=== PATIENT | female | born 1950 | race Caucasian/White ===

== ENCOUNTER → 2017-01-10 | Outpatient (CLI) | payer BC ==
[~2017-01-10] MED LIST: CHLO1TAB38 PO; LEVO100T PO; LUTE15CA PO; METO50TA7 PO; TAMO20TA47 PO
== END | disposition home or self-care (01) ==
LOC: C.MAMM 12:38
PROVIDERS: ATTEND Family Medicine
DX: Z78.0 Asymptomatic menopausal state (principal); M85.851 Other specified disorders of bone density and structure, right thigh; M85.852 Other specified disorders of bone density and structure, left thigh

== ENCOUNTER → 2017-02-08 | Outpatient (CLI) | payer BC ==
[~2017-02-08] MED LIST changes: +DOXY100C76 PO; -TAMO20TA47 PO; +TAMO20TA9 PO; +pota
[2017-02-08 13:45] VITALS: BP 142/87; PULSE 78; TEMP 36.9; O2SAT 96
--- NOTE | 2017-02-08 16:21 | Radiation Oncology Follow-Up ---
Radiation Oncology Follow-Up Date of Visit Feb 08, 2017. Reason For Visit Annual follow-up Radiation Completion Date 06/11/13 Diagnosis (1) Intraductal carcinoma of left breast Status: Resolved Onset Date: 04/17/2013 Stage: 0 Permanent Comment: Abnormal left breast mammogram January 2013 Status post biopsy revealing high-grade DCIS Estrogen receptor positive and progesterone receptor positive Status post partial mastectomy stage pTis Status post completion of radiation therapy utilizing accelerated partial breast treatment completed 06/11/2013 received 3850 cGy FNA right breast 05/15/2014 benign Last Edited By: Uma Tapia on Feb 11, 2015 16:03 Interim History She's been doing well over this past year. She denies any changes to her breast. She's noted no masses or tenderness and no change of the axilla. She is up-to-date on mammography. The area of firmness in the upper outer portion of the breast is unchanged. She was referred from Dr. Hutchinson to Dr. kristi Villaseñor. She continues on the tamoxifen. She denies side effects. He did discuss with her genetic testing. She has 2 cousins who have had breast cancer as well as an aunt. A cousin had a bilateral mastectomy. This relative also had genetic testing that was negative. She'll review this information with Dr. Brandon at her next visit. Allergies Coded Allergies: No Known Allergies (Unverified , 05/23/13) Home Medications Scheduled Chlorpromazine Hcl (Thorazine), 10 MG PO DAILY Doxycycline Monohydrate (Monodox), 50 MG PO DAILY Levothyroxine Sodium (Synthroid), 1 TAB PO DAILY Lutein-Zeaxanthin (Lutein), 1 CAP PO DAILY Metoprolol Succ (Toprol Xl) (Toprol-Xl), 50 MG PO DAILY Tamoxifen (Nolvadex), 20 MG PO DAILY [pota], 10 MG BID Review of Systems Gastrointestinal: Symptoms: WNL Oral: Symptoms: No Problems Respiratory: Symptoms: WNL Urinary: Symptoms: WNL Skin: Symptoms: No Problems Breast: Right Upper Arm Measurement: 37.0 Right Mid Arm Measurement: 26.0 Right Wrist Measurement: 14.5 Left Upper Arm Measurement: 36.0 Left Mid Arm Measurement: 29.0 Left Wrist Measurement: 15.0 Arm Dominence: Right Patient Cosmetic Evaluation: Good Staff Cosmetic Evalaluation: Good Physical Exam Vital Signs Date Time Temp Pulse Resp B/P (MAP) Pulse Ox O2 Delivery O2 Flow Rate FiO2 02/08/17 13:45 36.9 78 18 142/87 96 Fatigue: None General Appearance: no apparent distress Eyes: normal inspection, EOMI ENT: normal ENT inspection, hearing grossly normal Neck: no adenopathy, thyroid normal Respiratory/Chest: lungs clear, no respiratory distress, no accessory muscle use Breast: Breast examination reveals area of firmness in the upper outer portion of the left breast. She has well-healed incisions. There are no distinct masses. She has no skin retractions or nipple changes. There is no axillary adenopathy. She has telangiectasia in the area of her incision. Using the [place] score cosmesis she has a a good outcome. The right breast showed no masses or tenderness and no axillary adenopathy. Cardiovascular: regular rate, rhythm, no gallop, no murmur Extremities: no pedal edema Neurologic/Psychiatric: no motor/sensory deficits, alert, normal mood/affect Skin: warm/dry Pain Management Pain Location: None Patient Preferred Pain Scale: 0 - 10 Additional Studies She had a mammogram [facility] on 03/31/2016. This showed no evidence of breast malignancy. Routine diagnostic mammogram is recommended in 12 months. BI-RADS Category 2. Assessment & Plan Plan: Continue with annual mammography. Continue to get a follow-up with her primary care physician and Dr. Brandon. She continues on tamoxifen. We asked her to return to our office in 1 year. She may call if she has any questions or concerns in the interim. Total Time In Follow-Up I spent 20 minutes speaking to the patient and performing examination. I spent 15 minutes reviewing information and completing this note. Copy To Dez Hutchinson M.D.; Liyah Wolff M.D.; Holland Brandon MD
== END | disposition home or self-care (01) ==
LOC: C.ONC 13:12
PROVIDERS: ATTEND Physician Assistant Medical
DX: Z08 Encounter for follow-up examination after completed treatment for malignant neoplasm (principal); Z92.3 Personal history of irradiation; Z85.3 Personal history of malignant neoplasm of breast

== ENCOUNTER → 2017-02-09 | Outpatient (CLI) | payer BC ==
--- NOTE | 2017-02-09 13:48 | DIAGNOSTIC IMAGING REPORT ---
LUNG IMAGING VQ CLINICAL HISTORY: 66 years-old Female presenting with PULMONARY HYPERTENSION, APNEA, SLEEP. TECHNIQUE: Immediately following the inhalation of 32 mCi of technetium 99 M DTPA for the ventilation scan and the intravenous administration of 5.6 mCi of technetium 99 M MAA for the perfusion scan, anterior, oblique, lateral, and posterior views of the chest were obtained. Modified PIOPED II criteria were utilized for assessment. COMPARISON: Chest CT from 05/29/2013. FINDINGS: No perfusion defect. Slight heterogeneity of radiotracer distribution in the lungs, suggesting central airway deposition, which could suggest underlying chronic obstructive pulmonary disease. No ventilation defect evident. Reference: Modified PIOPED II criteria Normal: No perfusion defects. Very low likelihood ratio: Nonsegmental, perfusion defect < chest x-ray lesion, 1-3 small segmental defects, solitary triple matched defect (< or = 1 segment) in mid or upper lung, stripe sign, solitary large pleural effusion, > or = to 2 matched defects with regionally normal chest x-ray. High likelihood ratio: > or = 2 large mismatch segmental defects. Nondiagnostic: All other findings. IMPRESSION: 1. Normal. Electronically signed by: Neel Michaud M.D. 02/09/2017 1:47 PM Dictated Date/Time: 02/09/2017 1:42 PM
--- NOTE | 2017-02-09 14:40 | DIAGNOSTIC IMAGING REPORT ---
CHEST 2 VIEWS ROUTINE CLINICAL HISTORY: 66 years-old Female presenting with PULMONARY HYPERTENSION, post V/Q scan. TECHNIQUE: PA and lateral views of the chest were obtained. COMPARISON: V/Q scan performed the same day. FINDINGS: Cardiomediastinal silhouette normal. Surgical clips project over the left lung base, possibly in the left breast. Mild prominence of lung markings. Lungs and pleural spaces otherwise clear. Osseous structures normal. Cholecystectomy clips are IMPRESSION: 1. No acute cardiopulmonary disease. Electronically signed by: Neel Michaud M.D. 02/09/2017 2:38 PM Dictated Date/Time: 02/09/2017 2:37 PM
== END | disposition home or self-care (01) ==
LOC: C.NUCL 12:42
PROVIDERS: ATTEND Internal Medicine Cardiovascular Disease
DX: I10 Essential (primary) hypertension (principal); G47.30 Sleep apnea, unspecified; I27.20 Pulmonary hypertension, unspecified

== ENCOUNTER 2018-07-04 | Inpatient (IN) ==
[2018-07-04] MEDS ORDERED: SODIUM CHLORIDE 0.9% 1000ML 1,000 ML IV ONE (00:08)
[2018-07-04 00:31] LABS: Basophils # (auto) 0.03 K/uL (0-0.2); Basophils % (auto) 0.2 %; Eosinophils % (auto) 1.5 %; Hematocrit (blood only) 41.5 % (37-47); Hemoglobin 13.9 g/dL (12.0-16.0); Immature Granulocytes # (auto) 0.05 K/uL (0.00-0.02); Immature Granulocytes % (auto) 0.4 %; Lymphocytes # (auto) 2.69 K/uL (1.2-3.4); Lymphocytes % (auto) 20.1 %; Mean Corpuscular Hgb Conc 33.5 g/dL (32-36); Mean Corpuscular Volume 88.3 fL (80-100); Mean Platelet Volume 10.1 fL (7.4-10.4); Monocytes # (auto) 0.75 K/uL (0.11-0.59); Monocytes % (auto) 5.6 %; Neutrophils # (auto) 9.64 K/uL (1.4-6.5); Neutrophils % (auto) 72.2 %; Platelet Count 251 K/uL (130-400); RDW Coefficient of Variation 14.8 % (11.5-14.5); White Blood Count 13.36 K/uL (4.8-10.8)
[2018-07-04 00:46] LABS: Albumin Level 2.8 gm/dl (3.4-5.0); BUN Creatinine Ratio 18.3 (10-20); Calcium 8.4 mg/dl (8.5-10.1); Creatinine Clr Calc Pharmacy 50.6 ml/min; Est GFR (African American) 56.4; Est GFR (Non-African American) 48.7; Potassium 3.6 mmol/L (3.5-5.1)
[2018-07-04] MEDS ORDERED: POTASSIUM CHLORIDE 10 MEQ TABCR PO STA (00:49)
[2018-07-04 00:51] LABS: Albumin Globulin Ratio 0.8 (0.9-2); Bilirubin,Total 0.3 mg/dl (0.2-1); Creatine Kinase MB 3.5 ng/ml (0.5-3.6); Globulin 3.6 gm/dl (2.5-4.0); Total Protein 6.4 gm/dl (6.4-8.2); Troponin I 0.045 ng/ml (0-0.045)
--- NOTE | 2018-07-04 01:47 | Emergency Department Note ---
Entered by Carlos Loredo acting as a scribe for History of Present Illness General Chief complaint: Tachycardia Time Seen by Provider: 07/04/18 00:02 Source: patient History of Present Illness Provider complaint: Tachycardia Onset (ago): hour(s) (Just prior to arrival) Location: chest Severity: similar to prior episodes Pain Consistency: + constant Relieved By: + none Exacerbated By: + none Associated symptoms: + cough and + other (Congestion); no chest pain and no shortness of breath The patient is a 67 year old female who presents to the Emergency Room with complaints of constant tachycardia that started this evening just prior to arrival. The patient was here earlier today for the same symptoms after taking her Tadalafil. Tonight the symptoms returned shortly after taking the same medication. Today is the first day she started taking the Tadalafil and it was prescribed to her for pulmonary hypertension. The patient also has had a cough and some congestion over the past couple days. To relieve these symptoms she has been taking Tylenol. Prior to arrival she received 6mg of adenosine. Home Medications Home Medications Medication Instructions Recorded Confirmed Type bepotastine besilate [Bepreve] 1 drp OPB BID PRN 05/28/18 07/04/18 History brimonidine [Alphagan P] 1 drp OPL BID 05/28/18 07/04/18 History chlorthalidone 25 mg PO DAILY PRN 05/28/18 07/04/18 History levothyroxine 100 mcg PO DAILY 05/28/18 07/04/18 History lutein 20 mg PO DAILY 05/28/18 07/04/18 History macitentan 10 mg PO DAILY 05/28/18 07/04/18 History metoprolol succinate [Toprol XL] 50 mg PO DAILY 05/28/18 07/04/18 History potassium chloride 10 meq PO BID PRN 05/28/18 07/04/18 History spironolactone 25 mg PO DAILY 05/28/18 07/04/18 History tamoxifen 20 mg PO DAILY 05/28/18 07/04/18 History tadalafil (antihypertensive) 20 mg PO BID 07/03/18 07/04/18 History [Adcirca] Allergies Allergy/AdvReac Type Severity Reaction Status Date / Time No Known Allergies Allergy Verified 07/04/18 01:38 Past Med/Surg History Medical History Breast cancer (Acute) Hypertension (Chronic) Hypothyroidism (Chronic) Pulmonary hypertension (Chronic) Family History Other Family history non-contributory Social History Preferred Language: Telugu Feels Safe at Home: Yes Smoking Status: Never smoker Hx Alcohol Use: No Review of Systems See HPI for pertinent positives & negatives. and A total of 10 systems reviewed and were otherwise negative Physical Exam Vital Signs Vital Signs - 24 hr 07/04/18 00:00 07/04/18 00:17 07/04/18 00:29 Temperature 36.7 C Temperature Source Oral Sepsis Recent Fever Within 48 Hours No Sepsis New/Unexplained Change in Mental Status No Sepsis Action Taken by Nursing No Action Required Pulse Rate 104 H Pulse Rate [Bilateral Apical] 96 H Respiratory Rate 16 20 Respiratory Effort / Characteristics Non-Labored Respiratory Depth Normal Blood Pressure 128/72 Blood Pressure [Right Arm] 97/55 L Blood Pressure Mean 90 Blood Pressure Mean [Right Arm] 69 Pulse Oximetry 94 95 94 Oxygen Delivery Method Room Air Room Air Room Air 07/04/18 00:55 07/04/18 01:36 Temperature Temperature Source Sepsis Recent Fever Within 48 Hours Sepsis New/Unexplained Change in Mental Status Sepsis Action Taken by Nursing Pulse Rate Pulse Rate [Bilateral Apical] 96 H 96 H Respiratory Rate 20 20 Respiratory Effort / Characteristics Respiratory Depth Blood Pressure Blood Pressure [Right Arm] 95/63 L 115/66 Blood Pressure Mean Blood Pressure Mean [Right Arm] 73 82 Pulse Oximetry 93 94 Oxygen Delivery Method Room Air Room Air GENERAL: Awake, alert, well-appearing, in no distress HENT: Normocephalic, atraumatic. Oropharynx unremarkable. EYES: Normal conjunctiva. Sclera non-icteric. NECK: Supple. No nuchal rigidity. FROM. No masses. RESPIRATORY: Clear to auscultation. No wheezes. No rales. Normal respiratory effort. CARDIAC: Normal rate. Normal rhythm. No murmurs. No rubs. Extremities warm and well perfused. Pulses equal. No JVD. GI: Soft, non-distended. No tenderness to palpation. No rebound or guarding. No masses. RECTAL: Deferred. MUSCULOSKELETAL: Atraumatic. Chest examination reveals no tenderness. The back is symmetrical on inspection without obvious abnormality. There is no CVA tenderness to palpation. No joint edema. LOWER EXTREMITIES: Calves are equal size bilaterally and non-tender. No edema. No discoloration. NEURO: Normal sensorium. No sensory or motor deficits noted. Course 0004: Past medical records reviewed. The patient was evaluated in room A10, and a complete history and physical examination were performed. 0115: I spoke to Dr. Jaquez [facility] Hospitalist about the patient's case and she is going to accept her for further evaluation. 0125: I reviewed the results with the patient and discussed the treatment plan. She agreed with the plan. Consultations Consultation #1: I spoke to Dr. Leonid Monterroso [facility] Hospitalist about the patient's case and she is going to accept her for further evaluation. Time: 01:15 Administered Medications Discontinued Medications Sodium Chloride (Nss 1000ml) 1,000 mls @ 999 mls/hr IV .Q1H1M ONE Stop: 07/04/18 01:08 Last Infusion: 07/04/18 01:31 Dose: 0 mls/hr Documented by: [id number] Admin: 07/04/18 00:22 Dose: 999 mls/hr Documented by: [id number] Potassium Chloride (Klor-Con M10) 40 meq PO NOW STA Stop: 07/04/18 00:50 Last Admin: 07/04/18 00:55 Dose: 40 meq Documented by: [id number] Medical Decision Making Differential Diagnosis Differential: NSR, SVT, PACs, PVCs, Cardiac Dysrhythmia, Endocrine Dysfunction, Eletrolyte/Metabolic Abnormality, Pulmonary Embolism, Infectious, GI, Medication Reaction, amongst other pathologies entertained. Medical Records Attestation: I reviewed the patient's medical records. Home Medications Current Medication List: was personally reviewed by me Laboratory Data Attestation: I reviewed the patient's lab results. Result diagrams: 07/04/18 00:17 07/04/18 00:17 Lab Results 07/04/18 07/04/18 Range/Units 00:17 00:17 WBC 13.36 H (4.8-10.8) K/uL RBC 4.70 (4.2-5.4) M/uL Hgb 13.9 (12.0-16.0) g/dL Hct 41.5 (37-47) % MCV 88.3 (80-100) fL MCH 29.6 (25-34) pg MCHC 33.5 (32-36) g/dL RDW Std Deviation 48.0 H (36.4-46.3) fL RDW Coeff of Luiz 14.8 H (11.5-14.5) % Plt Count 251 (130-400) K/uL MPV 10.1 (7.4-10.4) fL Immature Gran % (Auto) 0.4 % Neut % (Auto) 72.2 % Lymph % (Auto) 20.1 % Daniels % (Auto) 5.6 % Eos % (Auto) 1.5 % Baso % (Auto) 0.2 % Immature Gran # (Auto) 0.05 H (0.00-0.02) K/uL Neut # (Auto) 9.64 H (1.4-6.5) K/uL Lymph # (Auto) 2.69 (1.2-3.4) K/uL Daniels # (Auto) 0.75 H (0.11-0.59) K/uL Eos # (Auto) 0.20 (0-0.5) K/uL Baso # (Auto) 0.03 (0-0.2) K/uL Sodium 141 (136-145) mmol/L Potassium 3.6 (3.5-5.1) mmol/L Chloride 109 H (98-107) mmol/L Carbon Dioxide 24 (21-32) mmol/L Anion Gap 8.0 (3-11) BUN 21 H (7-18) mg/dl Creatinine 1.16 (0.6-1.2) mg/dl Est Cr Clr Drug Dosing 50.6 ml/min Est GFR ( Amer) 56.4 Est GFR (Non-Af Amer) 48.7 BUN/Creatinine Ratio 18.3 (10-20) Glucose 155 H (70-99) mg/dl Calcium 8.4 L (8.5-10.1) mg/dl Magnesium 2.0 (1.8-2.4) mg/dl Total Bilirubin 0.3 (0.2-1) mg/dl AST 20 (15-37) U/L ALT 31 (12-78) U/L Alkaline Phosphatase 45 (45-117) U/L Total Creatine Kinase 59 (26-192) U/L CK-MB (CK-2) 3.5 (0.5-3.6) ng/ml CK/CKMB % Calc 5.9 H (0-3.0) Troponin I 0.045 (0-0.045) ng/ml Total Protein 6.4 (6.4-8.2) gm/dl Albumin 2.8 L (3.4-5.0) gm/dl Globulin 3.6 (2.5-4.0) gm/dl Albumin/Globulin Ratio 0.8 L (0.9-2) Lipase 189 (73-393) U/L ECG Data Attestation: I personally reviewed and interpreted this ECG as follows: Indication: tachycardia Rate (beats per minute): 104 Rhythm: sinus tachycardia Findings: no ST depression and no ST elevation Blood Pressure Blood Pressure Findings: Low blood pressure Blood Pressure Disposition: further management by hospitalist MDM Narrative This is a 67-year-old female who presents emergency department complaining of SVT. This is the second time the patient has been to the emergency department today with similar complaints. Her SVT was broken with 6 mg of adenosine. She was given a normal saline bolus. I did discuss the case with the hospitalist service who agreed to admit the patient. Patient was in agreement with the treatment plan. Impression & Plan SVT (supraventricular tachycardia) Discharge Plan Visit Data Chief Complaint: Tachycardia ED Provider: Jaun Simpson Discharge Problem: SVT (supraventricular tachycardia) Patient Disposition: Being Evaluated by Hospitalist Forms Stand Alone Forms: My [facility] Prescriptions Prescriptions: No Action potassium chloride 10 mEq Capsule, Extended Release 10 meq PO BID PRN (Reason: when taking chlorthalidone) RF: 0 metoprolol succinate [Toprol XL] 50 mg Tablet Extended Release 24 Hr 50 mg PO DAILY RF: 0 chlorthalidone 25 mg Tablet 25 mg PO DAILY PRN (Reason: worsening swelling, sob) RF: 0 spironolactone 25 mg Tablet 25 mg PO DAILY RF: 0 levothyroxine 100 mcg Tablet 100 mcg PO DAILY RF: 0 tamoxifen 20 mg Tablet 20 mg PO DAILY RF: 0 Alphagan P 0.1 % Drops 1 drp OPL BID RF: 0 Bepreve 1.5 % Drops 1 drp OPB BID PRN (Reason: Allergy Symptoms) RF: 0 lutein 20 mg Tablet 20 mg PO DAILY RF: 0 macitentan 10 mg Tablet 10 mg PO DAILY RF: 0 tadalafil (antihypertensive) [Adcirca] 20 mg tablet 20 mg PO BID RF: 0 Referrals Referrals: Liyah Wolff MD [Primary Care Provider] - The scribe's documentation has been prepared under my direction and personally reviewed by me in its entirety. I confirm that the note above accurately reflects all work, treatment, procedures, and medical decision making performed by me.
--- NOTE | 2018-07-04 02:57 | History & Physical Report ---
Date of Service July 04, 2018 Assessment & Plan (1) SVT (supraventricular tachycardia): 67-year-old female with a past medical history of idiopathic pulmonary hypertension, hypertension, right-sided heart failure presents with recurrent SVT. Recurrent SVT Admit to telemetry, monitor for SVT, alert physician Consulting cardiology, appreciate recommendations EKG in the morning N.p.o. Pulmonary hypertension Holding tadalafilpatient feels that there is a correlation between SVT and starting the medication today. While the medication could have theoretically caused tachycardia, considering her past history of SVT, she has to have some underlying disease likely Right heart failure In the setting of pulmonary hypertension echocardiogram on January 02, 2018 showed dilated right ventricle and hypokinetic RV wall, dilated right atrium, severe pulmonary hypertension, pressures of 102 mm per mercury. Since previous study of December 2016 the PA pressure had increased from 64mmHg to 102 mmHg. Continue chlorthalidone, spironolactone Hypertension Continue metoprolol Hypothyroidism Continue levothyroxine History of breast cancer Continue tamoxifen DVT prophylaxis Lovenox 30 mg every 24 Code -Full FEN Normal saline, 80 cc/h, stop after 1 bag (2) Pulmonary HTN: (3) HTN (hypertension): (4) History of breast cancer: (5) CHF (congestive heart failure): (6) Hypothyroidism: History of Present Illness Primary Care Provider: Liyah Wolff MD 67-year-old female with a past medical history of idiopathic pulmonary hypertension, hypertension, right-sided heart failure presents with recurrent SVT. The patient states that this morning in the shower she began to feel heart palpitations and decided to come the emergency room. She is says that she has had an episode of SVT last May and was seen by Dr. Lee. She was effectively treated with adenosine and was discharged home and again went into SVT around 330 this afternoon. During these episodes, she denied chest pain, but felt some chest tightness and shortness of breath. Patient was diagnosed with pulmonary hypertension about 1 year ago. She is being seen by a vascular specialist at [place] and is being treated with Macitentan and Tadalafil. She just started tadalafil today. Patient is concerned that medication side effect is triggering SVT. Of note, the patient has had URI symptoms for 1 week. Symptoms include runny nose, cough, sore throat. No fevers, chills, night sweats, abdominal pain, nausea/vomiting/diarrhea Allergies Allergy/AdvReac Type Severity Reaction Status Date / Time No Known Allergies Allergy Verified 07/04/18 01:38 Home Medications Home Medications Medication Instructions Recorded Confirmed Type bepotastine besilate [Bepreve] 1 drp OPB BID PRN 05/28/18 07/04/18 History brimonidine [Alphagan P] 1 drp OPL BID 05/28/18 07/04/18 History chlorthalidone 25 mg PO DAILY PRN 05/28/18 07/04/18 History levothyroxine 100 mcg PO DAILY 05/28/18 07/04/18 History lutein 20 mg PO DAILY 05/28/18 07/04/18 History macitentan 10 mg PO DAILY 05/28/18 07/04/18 History metoprolol succinate [Toprol XL] 50 mg PO DAILY 05/28/18 07/04/18 History potassium chloride 10 meq PO BID PRN 05/28/18 07/04/18 History spironolactone 25 mg PO DAILY 05/28/18 07/04/18 History tamoxifen 20 mg PO DAILY 05/28/18 07/04/18 History tadalafil (antihypertensive) 20 mg PO BID 07/03/18 07/04/18 History [Adcirca] Past Med/Surg History Medical History Breast cancer (Acute) Hypertension (Chronic) Hypothyroidism (Chronic) Pulmonary hypertension (Chronic) Family History Other Family history non-contributory Social History Preferred Language: Austrian Beliefs That Will Affect Care: None Current Living Situation: Spouse Other Information That Helps Us Care for You: No Feels Safe at Home: Yes Safety Concerns: Feels Safe At This Time Smoking Status: Never smoker Hx Alcohol Use: No Hx Substance Use: No Review of Systems All systems reviewed & are unremarkable except as noted in HPI & below Physical Exam Vital Signs (Past 24 Hours): Last Vital Signs Temp 36.7 C 07/04/18 00:00 Pulse 104 H 07/04/18 02:15 Resp 18 07/04/18 02:15 BP 134/50 L 07/04/18 02:15 Pulse Ox 96 04/09/19 02:20 Constitutional: WD/WN, vitals as above Eyes: PERRL, conjunctivae normal, anicteric sclerae ENMT: external ear and nose normal, oropharynx normal Neck: trachea midline, no thyromegaly Respiratory: normal respiratory effort, lungs clear to auscultation Auscultation: + wheezes (With forced expiration) Cardiovascular: RRR, no murmur, no edema Gastrointestinal (Abdomen): normal bowel sounds, soft, nontender, no hepatosplenomegaly Musculoskeletal: no cyanosis or clubbing, extremities motor strength 5/5 Skin: no rashes, warm and dry Neurologic: PERRL, EOMI, accommodation nl, no face palsy, no dysarthria Psychiatric: A+Ox3, euthymic affect Results & Data Laboratory Results Laboratory Last Values WBC 13.36 K/uL (4.8-10.8) H 07/04/18 00:17 RBC 4.70 M/uL (4.2-5.4) 07/04/18 00:17 Hgb 13.9 g/dL (12.0-16.0) 07/04/18 00:17 Hct 41.5 % (37-47) 07/04/18 00:17 MCV 88.3 fL (80-100) 07/04/18 00:17 MCH 29.6 pg (25-34) 07/04/18 00:17 MCHC 33.5 g/dL (32-36) 07/04/18 00:17 RDW Std Deviation 48.0 fL (36.4-46.3) H 07/04/18 00:17 RDW Coeff of Luiz 14.8 % (11.5-14.5) H 07/04/18 00:17 Plt Count 251 K/uL (130-400) 07/04/18 00:17 MPV 10.1 fL (7.4-10.4) 07/04/18 00:17 Immature Gran % (Auto) 0.4 % 07/04/18 00:17 Neut % (Auto) 72.2 % 07/04/18 00:17 Lymph % (Auto) 20.1 % 07/04/18 00:17 Haakon % (Auto) 5.6 % 07/04/18 00:17 Eos % (Auto) 1.5 % 07/04/18 00:17 Baso % (Auto) 0.2 % 07/04/18 00:17 Immature Gran # (Auto) 0.05 K/uL (0.00-0.02) H 07/04/18 00:17 Neut # (Auto) 9.64 K/uL (1.4-6.5) H 07/04/18 00:17 Lymph # (Auto) 2.69 K/uL (1.2-3.4) 07/04/18 00:17 Haakon # (Auto) 0.75 K/uL (0.11-0.59) H 07/04/18 00:17 Eos # (Auto) 0.20 K/uL (0-0.5) 07/04/18 00:17 Baso # (Auto) 0.03 K/uL (0-0.2) 07/04/18 00:17 Sodium 141 mmol/L (136-145) 07/04/18 00:17 Potassium 3.6 mmol/L (3.5-5.1) 07/04/18 00:17 Chloride 109 mmol/L (98-107) H 07/04/18 00:17 Carbon Dioxide 24 mmol/L (21-32) 07/04/18 00:17 Anion Gap 8.0 (3-11) 07/04/18 00:17 BUN 21 mg/dl (7-18) H 07/04/18 00:17 Creatinine 1.16 mg/dl (0.6-1.2) 07/04/18 00:17 Est Cr Clr Drug Dosing 50.6 ml/min 07/04/18 00:17 Est GFR ( Amer) 56.4 07/04/18 00:17 Est GFR (Non-Af Amer) 48.7 07/04/18 00:17 BUN/Creatinine Ratio 18.3 (10-20) 07/04/18 00:17 Glucose 155 mg/dl (70-99) H 07/04/18 00:17 Calcium 8.4 mg/dl (8.5-10.1) L 07/04/18 00:17 Magnesium 2.0 mg/dl (1.8-2.4) 07/04/18 00:17 Total Bilirubin 0.3 mg/dl (0.2-1) 07/04/18 00:17 AST 20 U/L (15-37) 07/04/18 00:17 ALT 31 U/L (12-78) 07/04/18 00:17 Alkaline Phosphatase 45 U/L (45-117) 07/04/18 00:17 Total Creatine Kinase 59 U/L (26-192) 07/04/18 00:17 CK-MB (CK-2) 3.5 ng/ml (0.5-3.6) 07/04/18 00:17 CK/CKMB % Calc 5.9 (0-3.0) H 07/04/18 00:17 Troponin I 0.045 ng/ml (0-0.045) 07/04/18 00:17 Total Protein 6.4 gm/dl (6.4-8.2) 07/04/18 00:17 Albumin 2.8 gm/dl (3.4-5.0) L 07/04/18 00:17 Globulin 3.6 gm/dl (2.5-4.0) 07/04/18 00:17 Albumin/Globulin Ratio 0.8 (0.9-2) L 07/04/18 00:17 Lipase 189 U/L (73-393) 07/04/18 00:17 Code Status & VTE Plan Code Status Full VTE Prophylaxis Plan VTE Prophylaxis will be ordered: Yes Supervising Physician Co-Signing Physician Notes Patient seen and examined, chart reviewed, case discussed [facility] Dr. León and I agree with his assessment and plan as documented above. Briefly, patient is a 67yo female with histoyr of IPH, right sided heart failure. She was recently started on Tadalafil. Presents to the ER earlier today with episode of SVT, terminated with Adenosine. Returns this evening with recurrence of SVT. Adenoside administered, patient presently in NSR. No complaints On exam she is afebrile, mildly hypertensive, sinus tachycardia at 103bpm, NAD, non-toxic HEENT - MMM, neck supple Heart - +S1/S2, regular, no m/r/g Lungs - CTA Abd - +BS, soft, NT/ND Ext - no edema Labs and images reviwed Assessement/Plan: Monitor overnight for any recurrence of arrhythmia Optimize electrolytes Cardiology consultation to assist with medication management Remainder of plan as above Resident Activity Tracking Resident Involvement: Resident Care Provided Care Provided: Adult [facility] Medicine
[2018-07-04] MEDS ORDERED: CHLORTHALIDONE 25 MG TAB PO PRN (03:19)
[2018-07-04] MEDS ORDERED: NSS + 20MEQ KCL 20 MEQ/1,000 ML BAG IV SCH (04:00)
[2018-07-04 04:26] LABS: Basophils # (auto) 0.03 K/uL (0-0.2); Basophils % (auto) 0.2 %; Eosinophils # (auto) 0.06 K/uL (0-0.5); Eosinophils % (auto) 0.4 %; Hematocrit (blood only) 42.1 % (37-47); Immature Granulocytes # (auto) 0.04 K/uL (0.00-0.02); Immature Granulocytes % (auto) 0.3 %; Lymphocytes # (auto) 2.23 K/uL (1.2-3.4); Lymphocytes % (auto) 15.9 %; Mean Corpuscular Hgb Conc 33.3 g/dL (32-36); Mean Corpuscular Volume 88.1 fL (80-100); Mean Platelet Volume 10.2 fL (7.4-10.4); Monocytes # (auto) 0.65 K/uL (0.11-0.59); Monocytes % (auto) 4.6 %; Neutrophils # (auto) 11.05 K/uL (1.4-6.5); Neutrophils % (auto) 78.6 %; Platelet Count 243 K/uL (130-400); RDW Coefficient of Variation 14.9 % (11.5-14.5); RDW Standard Deviation 47.8 fL (36.4-46.3); Red Blood Count 4.78 M/uL (4.2-5.4); White Blood Count 14.06 K/uL (4.8-10.8)
[2018-07-04 04:41] LABS: Prothrombin Time 10.6 Seconds (9.0-12.0)
[2018-07-04 04:44] LABS: BUN Creatinine Ratio 18.1 (10-20); Calcium 8.2 mg/dl (8.5-10.1); Creatinine Clr Calc Pharmacy 60.1 ml/min; Est GFR (Non-African American) 60.4; Potassium 3.9 mmol/L (3.5-5.1)
[2018-07-04] MEDS: LEVOTHYROXINE SODIUM 100 MCG TABLET PO SCH (05:42)
[2018-07-04] MEDS ORDERED: ADENOSINE IV SOLN 3 MG/ML 2 ML VIAL IV ONE (07:19)
[2018-07-04] MEDS ORDERED: METOPROLOL TARTRATE 1 MG/ML VIAL IV ONE (07:35)
[2018-07-04] MEDS ORDERED: METOPROLOL TARTRATE 1 MG/ML VIAL IV STA (07:38)
[2018-07-04] MEDS: TAMOXIFEN CITRATE 10 MG TABLET PO SCH (09:12)
[2018-07-04] MEDS: SPIRONOLACTONE 25 MG TAB PO SCH (09:12)
[2018-07-04] MEDS: METOPROLOL SUCC 50MG EXT REL TAB PO SCH (09:12)
[2018-07-04] MEDS: ENOXAPARIN INJ 30 MG/0.3 ML SYR SQ SCH (09:14)
--- NOTE | 2018-07-04 14:38 | Consultation Report ---
DATE OF CONSULTATION: 07/04/2018 REQUESTING: Dr. Jm León. DETAIL SUPERVISOR: Hugo Lee DO, [facility]. REASON FOR CONSULTATION: Recurrent SVT after the use of Cialis for pulmonary hypertension. Dear Dr. León: It was pleasure to see Dior today in consultation with regards to her recurrent SVT. In May, she had an episode of palpitations and felt her heart racing. It was short lived and of note, at that point, she was not on her medications for her pulmonary hypertension. In the interim, she was started on macitentan on June 06. Yesterday, she took her first dose of Cialis for combined treatment. Within 2 hours, she had palpitations. She came to the Emergency Room. It had broke by that point, she was discharged home and told her if she had another episode, to come back. She took her evening dose and had another episode of SVT with a narrow complex tachycardia at a rate of approximately 170 beats per minute. She was admitted at that point and again this morning she had an episode at approximately 170 beats per minute that lasted for about 40 minutes. It broke with a combination of low-dose Toprol and a cough. Since then, her Cialis has been held. She notes with the addition of macitentan that she has had an improvement in her dyspnea. She can climb 14 steps in her house with mild dyspnea now, she does not have to stop half way, she can walk to the mailbox which is about 60 feet without dyspnea on the way back, she does have some shortness of breath. She also notes that the chest heaviness that she had previously has improved. With the palpitations, she feels a fluttering sensation in her chest and some very mild chest tightness. She denies any lightheadedness or dizziness, presyncope or syncope with it. She denies any nausea. She has had some mild intermittent lower extremity edema which was discussed with her, it would be worse with the addition of her macitentan in May. With that, she has needed additional doses of diuretics intermittently, mostly for abdominal distention or abdominal bloating. She has also had a recent upper respiratory tract infection for which her 5-year-old grandson gave her. She denies any PND or orthopnea. She denies any bleeding, bruising, dark stools or black stools. The rest of complete review of systems is otherwise negative. PAST MEDICAL HISTORY: 1. Severe pulmonary hypertension by cardiac catheterization 03/2017 with an RA pressure of 20, RV pressure of 70/20 with a PA pressure of 75/29 and a wedge pressure of 12. With nitric oxide, her PA pressure dropped, but her cardiac output did not improve. 2. No evidence of epicardial coronary artery disease by catheterization 03/2017. 3. Echocardiogram 12/2017 with a dilated right ventricle and RV free wall hypokinesis, severe pulmonary hypertension with a PA pressure of 100 mmHg with flattening of the septum in systole and diastole consistent with pressure and volume overload. 4. Hypothyroidism. 5. GERD. 6. Hypertension. 7. Breast cancer status post radiation therapy, March 2013. 8. Mild obstructive sleep apnea with significant hypoxemia tolerating BiPAP. 9. Palpitations consistent with SVT (likely AV ayesha in origin or Atach). SOCIAL HISTORY: She did have secondary smoke exposure as a child. She denies any tobacco. She is . She watches her grandson. 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 FAMILY HISTORY: Mom at 69 of complications related to rheumatic fever. Dad of COPD. She has 2 brothers. ALLERGIES: No known drug allergies. MEDICATIONS: Reviewed in electronic medical record. PHYSICAL EXAMINATION: GENERAL: She is awake, alert, oriented x3. She is in no acute distress. She is a well-appearing female. She does appear mildly short of breath talking in sentences. VITAL SIGNS: Her heart rate is 85, blood pressure 120/79, respirations 16. HEENT: 2+ carotid upstrokes. No evidence of carotid bruits. Jugular venous pressure appeared normal. Sclerae is anicteric. Hearing is normal. LUNGS: Clear to auscultation bilaterally. No rales, rhonchi or wheezing. HEART: Regular rate and rhythm. Her second heart sound is accentuated and palpable. ABDOMEN: Soft, nontender, nondistended. Positive bowel sounds. EXTREMITIES: No clubbing, cyanosis. She has trace bilateral lower extremity edema. PSYCHIATRIC: Affect appeared appropriate. DIAGNOSTIC DATA: Her Myranda studies were reviewed in detail. EKG 05/28/2018 at 12:24, narrow complex tachycardia that appears to be retrograde P-wave seen best in V2 with a left posterior fascicular block. EKG yesterday in the ER, sinus rhythm, first-degree AV block, right ventricular hypertrophy, ST-T changes, consider inferior and lateral ischemia. IMPRESSIONS: 1. 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 2. Severe pulmonary hypertension. 3. Normal left ventricular function with a dilated right ventricle and RV dysfunction. 4. Negative cardiac catheterization for coronary artery disease. We know that her episode in May was before she was placed on treatment for her pulmonary hypertension and therefore she has the substrate for SVT. It would appear that Cialis is only exacerbated that. I discussed with her options at this point include something like flecainide or amiodarone to suppress the arrhythmias as she is already on beta blockers. The other option would be to consider ablative therapy. I will reach out to Dr. Carney at [facility] to get his recommendations with regards to permanently stopping her Cialis and then determining what her second drug option would be for her pulmonary hypertension. We will also discuss her options with regards to her arrhythmias. For now, I would continue with her current medical regimen, if she has incessant episodes, I would we will need to inititae antiarrhythmic therapy. Further recommendations will be forthcoming. Thank you for allowing us to participate in her care. LORA
[2018-07-04] MEDS: NSS + 20MEQ KCL 20 MEQ/1,000 ML BAG IV SCH (16:52)
[2018-07-04] MEDS: MACITENTAN PO SCH (21:40)
[2018-07-04] MEDS ORDERED: MACITENTAN PO ONE (21:45)
[2018-07-05] MEDS: LEVOTHYROXINE SODIUM 100 MCG TABLET PO SCH (05:30)
[2018-07-05] MEDS: NSS + 20MEQ KCL 20 MEQ/1,000 ML BAG IV SCH ×2 (05:30→17:39)
[2018-07-05] MEDS: SPIRONOLACTONE 25 MG TAB PO SCH (08:41)
[2018-07-05] MEDS: ENOXAPARIN INJ 30 MG/0.3 ML SYR SQ SCH (08:42)
[2018-07-05] MEDS: METOPROLOL SUCC 50MG EXT REL TAB PO SCH (08:43)
[2018-07-05] MEDS: TAMOXIFEN CITRATE 10 MG TABLET PO SCH (08:43)
[2018-07-05] MEDS ORDERED: AMIODARONE IV BOLUS / DRIP IV STA (09:08)
[2018-07-05] MEDS ORDERED: AMIODARONE / D5W 150 MG/100 ML BAG IV STA (09:10)
[2018-07-05] MEDS ORDERED: AMIODARONE 360MG / 200ML D5W IV ONE (09:15)
[2018-07-05] MEDS ORDERED: AMIODARONE 150MG / 100ML D5W IV ONE (09:15)
[2018-07-05] MEDS ORDERED: AMIODARONE / D5W 360 MG/200 ML BAG IV SCH (09:20)
--- NOTE | 2018-07-05 09:26 | Cardiology Progress Note ---
Date of Service July 05, 2018 This morning at approximately 852 she went into SVT again at a rate of 180 bpm. She did feel palpitations with this. She denied any lightheadedness. She denied any shortness of breath or chest discomfort. With plan initiation of amiodarone she can be back to normal sinus rhythm with a 4 beat run of nonsustained VT. She feels back to her baseline. Physical Exam Vital Signs (Past 24 Hours): Last Vital Signs Temp 37.1 C 07/05/18 07:10 Pulse 90 07/05/18 07:10 Resp 19 07/05/18 07:10 BP 116/75 07/05/18 07:10 Pulse Ox 91 07/05/18 07:10 [place] Consultation Report Signed Patient: DIOR RAYO Date: 07/04/18 MR#: [id number] Phy: Blake Ca M.D. Acct ID:[id number] Phy: Liyah Wolff M.D. Date: 1950Fam Phy: Age: 67Location: 2S Sex: F Room/Bed: Rust cc: Hugo Lee DO~ DICTATED BY: Hugo Lee DO DATE OF CONSULTATION: 07/04/2018 REQUESTING: Dr. Jm León. HONING JOB SETTER: Hugo Lee DO, [facility]. REASON FOR CONSULTATION: Recurrent SVT after the use of Cialis for pulmonary hypertension. Dear Dr. León: It was pleasure to see Dior today in consultation with regards to her recurrent SVT. In May, she had an episode of palpitations and felt her heart racing. It was short lived and of note, at that point, she was not on her medications for her pulmonary hypertension. In the interim, she was started on macitentan on June 06. Yesterday, she took her first dose of Cialis for combined treatment. Within 2 hours, she had palpitations. She came to the Emergency Room. It had broke by that point, she was discharged home and told her if she had another episode, to come back. She took her evening dose and had another episode of SVT with a narrow complex tachycardia at a rate of approximately 170 beats per minute. She was admitted at that point and again this morning she had an episode at approximately 170 beats per minute that lasted for about 40 minutes. It broke with a combination of low-dose Toprol and a cough. Since then, her Cialis has been held. She notes with the addition of macitentan that she has had an improvement in her dyspnea. She can climb 14 steps in her house with mild dyspnea now, she does not have to stop half way, she can walk to the mailbox which is about 60 feet without dyspnea on the way back, she does have some shortness of breath. She also notes that the chest heaviness that she had previously has improved. With the palpitations, she feels a fluttering sensation in her chest and some very mild chest tightness. She denies any lightheadedness or dizziness, presyncope or syncope with it. She denies any nausea. She has had some mild intermittent lower extremity edema which was discussed with her, it would be worse with the addition of her macitentan in May. With that, she has needed additional doses of diuretics intermittently, mostly for abdominal distention or abdominal bloating. She has also had a recent upper respiratory tract infection for which her 5-year-old grandson gave her. She denies any PND or orthopnea. She denies any bleeding, bruising, dark stools or black stools. The rest of complete review of systems is otherwise negative. PAST MEDICAL HISTORY: 1. Severe pulmonary hypertension by cardiac catheterization 03/2017 with an RA pressure of 20, RV pressure of 70/20 with a PA pressure of 75/29 and a wedge pressure of 12. With nitric oxide, her PA pressure dropped, but her cardiac output did not improve. 2. No evidence of epicardial coronary artery disease by catheterization 03/2017. 3. Echocardiogram 12/2017 with a dilated right ventricle and RV free wall hypokinesis, severe pulmonary hypertension with a PA pressure of 100 mmHg with flattening of the septum in systole and diastole consistent with pressure and volume overload. 4. Hypothyroidism. 5. GERD. 6. Hypertension. 7. Breast cancer status post radiation therapy, March 2013. 8. Mild obstructive sleep apnea with significant hypoxemia tolerating BiPAP. 9. Palpitations consistent with SVT (likely AV ayesha in origin or Atach). SOCIAL HISTORY: She did have secondary smoke exposure as a child. She denies any tobacco. She is . She watches her grandson. 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 FAMILY HISTORY: Mom at 69 of complications related to rheumatic fever. Dad of COPD. She has 2 brothers. ALLERGIES: No known drug allergies. MEDICATIONS: Reviewed in electronic medical record. PHYSICAL EXAMINATION: GENERAL: She is awake, alert, oriented x3. She is in no acute distress. She is a well-appearing female. She does appear mildly short of breath talking in sentences. HEENT: 2+ carotid upstrokes. No evidence of carotid bruits. Jugular venous pressure appeared normal. Sclerae is anicteric. Hearing is normal. LUNGS: Clear to auscultation bilaterally. No rales, rhonchi or wheezing. HEART: Regular and tachycardic. Her second heart sound is accentuated and palpable. ABDOMEN: Soft, nontender, nondistended. Positive bowel sounds. EXTREMITIES: No clubbing, cyanosis. She has trace bilateral lower extremity edema. PSYCHIATRIC: Affect appeared appropriate. Admission EK05/28/2018 at 12:24, narrow complex tachycardia that appears to be retrograde P-wave seen best in V2 with a left posterior fascicular block. EKG yesterday in the ER, sinus rhythm, first-degree AV block, right ventricular hypertrophy, ST-T changes, consider inferior and lateral ischemia. IMPRESSIONS: 1. 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 2. Severe pulmonary hypertension. 3. Normal left ventricular function with a dilated right ventricle and RV dysfunction. 4. Negative cardiac catheterization for coronary artery disease. In discussion with the EP service and the pulmonary hypertension service at [facility] we have decided to treat her with amiodarone to try to maintain sinus rhythm. The concern is that this may be an atrial tachycardia which will be difficult to ablate. The other concern is that with her severe pulmonary hypertension and the need for sedation for ablation she would be at higher risk of complications. If she fails medical therapy with amiodarone then high risk ablation would be our only option. Now that she converted back to sinus rhythm we will hold off on the amiodarone bolus we will start the drip at 1 mg/min for 6 hours and then 0.5 mg/min. We will also start oral amiodarone with 400 mg twice daily for 5 days and then 200 mg twice daily for a month. We will have to watch for bradycardia. We will reduce her Toprol from 50 mg a day to 25 mg a day in anticipation of amiodarone slowing her sinus rate as well. All this was discussed with the nursing staff.
[2018-07-05] MEDS: AMIODARONE 200 MG TAB PO SCH ×2 (11:07→19:33)
[2018-07-05] MEDS: AMIODARONE / D5W 360 MG/200 ML BAG IV SCH (16:02)
[2018-07-05] MEDS ORDERED: METOPROLOL SUCC 25MG EXT REL TAB PO SCH (21:00)
--- NOTE | 2018-07-05 22:30 | Hospitalist Progress Note ---
Date of Service July 05, 2018 Assessment & Plan (1) SVT (supraventricular tachycardia): 67-year-old female with a past medical history of idiopathic pulmonary hypertension, hypertension, right-sided heart failure presents with recurrent SVT. Recurrent SVT Admit to telemetry, monitor for SVT Reviweied monitor Patient has had 2 epsidoes of SVT during hospital stay, on 07/04 required lorpressor IV and on 07/05 required amiodarone. -will keep patient on amiodarone. If no SVT, can discharge in AM. Consulting cardiology, appreciate recommendations Pulmonary hypertension Holding tadalafilpatient feels that there is a correlation between SVT and starting the medication today. While the medication could have theoretically caused tachycardia, considering her past history of SVT Right heart failure In the setting of pulmonary hypertension echocardiogram on January 02, 2018 showed dilated right ventricle and hypokinetic RV wall, dilated right atrium, severe pulmonary hypertension, pressures of 102 mm per mercury. Since previous study of December 2016 the PA pressure had increased from 64mmHg to 102 mmHg. Continue chlorthalidone, spironolactone Hypertension Continue metoprolol Hypothyroidism Continue levothyroxine History of breast cancer Continue tamoxifen DVT prophylaxis Lovenox 30 mg every 24 Code -Full Spent 35 minutes in management of patient, this included chart review, and discussing with cardiology. (2) Pulmonary HTN: (3) HTN (hypertension): (4) History of breast cancer: (5) CHF (congestive heart failure): Patient does not appear to be in active CHF (6) Hypothyroidism: Subjective 67 yo female, she reports feeling better today. She again had an episode of SVT in the AM. Patient was placed on amiodarone. Since then sylvester reports being asymptomatic. Patient has no new symptoms. Review of Systems All systems reviewed & are unremarkable except as noted in HPI & below Physical Exam Vital Signs (Past 24 Hours): Last Vital Signs Temp 36.7 C 07/05/18 19:21 Pulse 72 07/05/18 19:21 Resp 18 07/05/18 19:21 BP 123/81 07/05/18 19:21 Pulse Ox 93 07/05/18 19:21 Physical Exam: Constitutional: WD/WN, vitals as above Eyes: PERRL, conjunctivae normal, anicteric sclerae ENMT: external ear and nose normal, oropharynx normal Neck: trachea midline, no thyromegaly Respiratory: normal respiratory effort, lungs clear to auscultation Auscultation: no wheezing Cardiovascular: RRR, no murmur, no edema Gastrointestinal (Abdomen): normal bowel sounds, soft, nontender, no hepatosplenomegaly Musculoskeletal: no cyanosis or clubbing, extremities motor strength 5/5 Skin: no rashes, warm and dry Neurologic: PERRL, EOMI, accommodation nl, no face palsy, no dysarthria Psychiatric: A+Ox3, euthymic affect
[2018-07-06] MEDS: AMIODARONE / D5W 360 MG/200 ML BAG IV SCH (02:36)
[2018-07-06] MEDS: LEVOTHYROXINE SODIUM 100 MCG TABLET PO SCH (06:07)
[2018-07-06] MEDS: AMIODARONE 200 MG TAB PO SCH (07:45)
[2018-07-06] MEDS: TAMOXIFEN CITRATE 10 MG TABLET PO SCH (07:46)
[2018-07-06] MEDS: MACITENTAN PO SCH (07:46)
[2018-07-06] MEDS: SPIRONOLACTONE 25 MG TAB PO SCH (07:47)
[2018-07-06] MEDS: ENOXAPARIN INJ 30 MG/0.3 ML SYR SQ SCH (07:47)
--- NOTE | 2018-07-06 10:00 | Cardiology Progress Note ---
Date of Service July 06, 2018 She feels well today. She denies any chest pain or chest pressure. She has not had any palpitations in the last 24 hours. In reviewing her telemetry strips there have been no episodes of SVT. She has been in sinus rhythm with a first- degree AV block. She has any lower extremity edema lightheadedness or dizziness. She has walked to the bathroom and feels okay. She denies any other chest tightness she has had with her episodes of SVT. Physical Exam Vital Signs (Past 24 Hours): Last Vital Signs Temp 36.7 C 07/06/18 07:27 Pulse 64 07/06/18 07:27 Resp 18 07/06/18 07:27 BP 103/69 07/06/18 07:27 Pulse Ox 94 07/06/18 07:27 PHYSICAL EXAMINATION: GENERAL: She is awake, alert, oriented x3. She is in no acute distress. She is a well-appearing female. HEENT: 2+ carotid upstrokes. No evidence of carotid bruits. Jugular venous pressure appeared normal. Sclerae is anicteric. Hearing is normal. LUNGS: Clear to auscultation bilaterally. No rales, rhonchi or wheezing. HEART: Regular rate and rhythm: Her second heart sound is accentuated and palpable. ABDOMEN: Soft, nontender, nondistended. Positive bowel sounds. EXTREMITIES: No clubbing, cyanosis. She has trace bilateral lower extremity edema. PSYCHIATRIC: Affect appeared appropriate. IMPRESSIONS: 1. 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 2. Severe pulmonary hypertension. 3. Normal left ventricular function with a dilated right ventricle and RV dysfunction. 4. Negative cardiac catheterization for coronary artery disease. She can be discharged home today with amiodarone 400 mg twice daily for 4 more days then 200 mg twice daily for a month. After that we will reduce the dose to 200 mg daily. She will be seeing Dr. JOHNSON in approximately a week at [facility]. I will message him through the electronic medical record to let him know of this hospitalization. They will have to determine the best second drug to add to her medical regimen. For now she will remain on amiodarone I did discuss where she has an episode of SVT at home that last more than 20 minutes she can take an extra dose of amiodarone. If it lasts beyond an hour or if she is lightheaded or dizzy or does not feel well with that she should come to the emergency room. She should remain off Cialis. We will arrange for follow-up in our office in a month's time.
--- NOTE | 2018-07-14 08:02 | Discharge Summary ---
Date of Service July 06, 2018 Admission HPI Per Admitting Provider 67-year-old female with a past medical history of idiopathic pulmonary hypertension, hypertension, right-sided heart failure presents with recurrent SVT. The patient states that this morning in the shower she began to feel heart palpitations and decided to come the emergency room. She is says that she has had an episode of SVT last May and was seen by Dr. Lee. She was effectively treated with adenosine and was discharged home and again went into SVT around 330 this afternoon. During these episodes, she denied chest pain, but felt some chest tightness and shortness of breath. Patient was diagnosed with pulmonary hypertension about 1 year ago. She is being seen by a vascular specialist at [facility] and is being treated with Macitentan and Tadalafil. She just started tadalafil today. Patient is lele rned that medication side effect is triggering SVT. Of note, the patient has had URI symptoms for 1 week. Symptoms include runny nose, cough, sore throat. No fevers, chills, night sweats, abdominal pain, nausea/vomiting/diarrhea Principal Diagnosis Supraventricular Tachycardia Discharge Exam Constitutional: WD/WN, vitals as above Eyes: PERRL, conjunctivae normal, anicteric sclerae ENMT: external ear and nose normal, oropharynx normal Neck: trachea midline, no thyromegaly Respiratory: normal respiratory effort, lungs clear to auscultation Auscultation: no wheezing Cardiovascular: RRR, no murmur, no edema Gastrointestinal (Abdomen): normal bowel sounds, soft, nontender, no hepat osplenomegaly Musculoskeletal: no cyanosis or clubbing, extremities motor strength 5/5 Skin: no rashes, warm and dry Neurologic: PERRL, EOMI, accommodation nl, no face palsy, no dysarthria Psychiatric: A+Ox3, euthymic affect Discharge Data Allergies Allergy/AdvReac Type Severity Reaction Status Date / Time No Known Allergies Allergy Verified 07/04/18 01:38 Consultations 07/04/18 00:51 ED Decision to Admit Stat 07/04/18 08:33 Consult Cardiology Routine Hospital Course (1) SVT (supraventricular tachycardia): 67-year-old female with a past medical history of idiopathic pulmonary hypertension, hypertension, right-sided heart failure presents with recurrent SVT. Recurrent SVT Admit to telemetry, monitor for SVT Reviewed monitor Patient has had 2 episodes of SVT during hospital stay, on 07/04 required lorpressor IV and on 07/05 required amiodarone. -will keep patient on amiodarone. Patient had no SVT thereafter, will discharge on amiodarone.. Consulting cardiology, appreciate recommendations Pulmonary hypertension Holding tadalafilpatient feels that there is a correlation between SVT and starting the medication today. While the medication could have theoretically caused tachycardia, considering her past history of SVT Right heart failure In the setting of pulmonary hypertension echocardiogram on January 02, 2018 showed dilated right ventricle and hypokinetic RV wall, dilated right atrium, severe pulmonary hypertension, pressures of 102 mm per mercury. Since previous study of December 2016 the PA pressure had increased from 64mmHg to 102 mmHg. Continue chlorthalidone, spironolactone Hypertension Continue metoprolol Hypothyroidism Continue levothyroxine History of breast cancer Continue tamoxifen DVT prophylaxis Lovenox 30 mg every 24 Code -Full (2) Pulmonary HTN: (3) HTN (hypertension): (4) History of breast cancer: (5) CHF (congestive heart failure): Patient does not appear to be in active CHF (6) Hypothyroidism: Total Time Total Time Spent Total Time Spent (In Minutes): 32 Total Time Includes: Examination of the Patient, Discharge Planning and Medication Reconciliation Discharge Plan Discharge Items Patient Disposition: Home - Self-Care Reason For Visit: SVT Discharge Diagnosis: Supra ventricular Tachycardia (Fast heart rate) Discharge Goals: Decrease discomfort Activity: Resume your previous activity Non-emergency contact: Primary Care Provider and Automotive 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 After that we will reduce the dose to 200 mg daily. You will be seeing Dr. JOHNSON in approximately a week at [facility]. I will message him through the electronic medical record to let him know of this hospitalization. They will have to determine the best second drug to add to her medical regimen. If you have an episode of SVT at home that last more than 20 minutes you can take an extra dose of amiodarone. If it lasts beyond an hour or if she is lightheaded or dizzy or does not feel well with that she should come to the emergency room. Prescriptions: New amiodarone 200 mg Tablet 400 mg PO UD Qty: 64 RF: 0 Continued potassium chloride 10 mEq Capsule, Extended Release 10 meq PO BID PRN (Reason: when taking chlorthalidone) RF: 0 metoprolol succinate [Toprol XL] 50 mg Tablet Extended Release 24 Hr 50 mg PO DAILY RF: 0 chlorthalidone 25 mg Tablet 25 mg PO DAILY PRN (Reason: worsening swelling, sob) RF: 0 spironolactone 25 mg Tablet 25 mg PO DAILY RF: 0 levothyroxine 100 mcg Tablet 100 mcg PO DAILY RF: 0 tamoxifen 20 mg Tablet 20 mg PO DAILY RF: 0 Alphagan P 0.1 % Drops 1 drp OPL BID RF: 0 Bepreve 1.5 % Drops 1 drp OPB BID PRN (Reason: Allergy Symptoms) RF: 0 lutein 20 mg Tablet 20 mg PO DAILY RF: 0 macitentan 10 mg Tablet 10 mg PO DAILY RF: 0 Discontinued tadalafil (antihypertensive) [Adcirca] 20 mg tablet 20 mg PO BID RF: 0 Stand-Alone Forms: [facility] Discharge Orders: Discharge Order (Routine); Ordered 07/06/18 Ordered By: Blake Ca Admission Data Admit Date/Time: 07/05/18 09:11 Attending Provider: Blake Ca Admit Provider: Jm León Primary Care Provider: Liyah Wolff Other Providers: Nichelle Jaquez Jason D Service: Telemetry Other Interventions: Discharge Summary Assessment (RN) Last Done: 07/06/18 11:44 DC Date/Time DO NOT enter until pt leaves facility: 07/06/18 13:00
== END 2018-07-06 13:00 | disposition home or self-care (01) | DRG 310 ==
LOC: 2S → ED → SUATTDRO 02:37 → 2S 03:04

== ENCOUNTER 2019-10-29 08:15 | Inpatient (IN) ==
[2019-10-29] MEDS ORDERED: MAGNESIUM SULFATE / D5W 1 GM/100 ML BAG IV ONE (08:24)
--- NOTE | 2019-10-29 08:44 | XRay Report ---
XR chest 1V portable CLINICAL HISTORY: Atypical chest pain COMPARISON STUDY: 07/03/2019 FINDINGS: The heart is mildly enlarged. There is diffuse elevation of interstitium consistent with mi ld congestive failure/fluid overload. There is no lobar consolidation. There are no significant pleur al effusions.[There is stable right hilar enlargement consistent with the patient's known adenopathy. IMPRESSION: 1. Radiographic evidence of congestive failure/fluid overload 2. Stable right hilar enlargement consistent with the patient's known adenopathy 3. No evidence of focal pulmonary consolidation ACT 112: Negative or not required by law. Electronically signed by: Slade Latham M.D. 10/29/2019 8:42 AM
[2019-10-29 08:45] LABS: Basophils # (auto) 0.01 K/uL (0-0.2); Basophils % (auto) 0.1 %; Eosinophils # (auto) 0.18 K/uL (0-0.5); Eosinophils % (auto) 2.4 %; Hematocrit (blood only) 37.9 % (37-47); Immature Granulocytes # (auto) 0.01 K/uL (0.00-0.02); Immature Granulocytes % (auto) 0.1 %; Lymphocytes # (auto) 1.25 K/uL (1.2-3.4); Lymphocytes % (auto) 16.8 %; Mean Corpuscular Hemoglobin 27.6 pg (25-34); Mean Corpuscular Hgb Conc 31.7 g/dL (32-36); Mean Corpuscular Volume 87.1 fL (80-100); Mean Platelet Volume 9.2 fL (7.4-10.4); Monocytes % (auto) 6.7 %; Neutrophils # (auto) 5.49 K/uL (1.4-6.5); Neutrophils % (auto) 73.9 %; Platelet Count 227 K/uL (130-400); RDW Coefficient of Variation 15.6 % (11.5-14.5); RDW Standard Deviation 50.6 fL (36.4-46.3); Red Blood Count 4.35 M/uL (4.2-5.4); White Blood Count 7.44 K/uL (4.8-10.8)
[2019-10-29 09:04] LABS: Partial Thromboplastin Ratio 0.9; Partial Thromboplastin Time 24.8 Seconds (21.0-31.0); Prothrombin Time 10.7 Seconds (9.0-12.0)
[2019-10-29 09:12] LABS: Alanine Aminotransferase 12 U/L (12-78); Albumin Level 3.3 gm/dl (3.4-5.0); Alkaline Phosphatase 66 U/L (45-117); Aspartate Aminotransferase 14 U/L (15-37); BUN Creatinine Ratio 13.2 (10-20); Bilirubin,Total 0.4 mg/dl (0.2-1); Blood Urea Nitrogen 17 mg/dl (7-18); Calcium 8.8 mg/dl (8.5-10.1); Carbon Dioxide 23 mmol/L (21-32); Chloride 111 mmol/L (98-107); Creatine Kinase 60 U/L (26-192); Creatine Kinase MB < 1.0 ng/ml (0.5-3.6); Creatinine Clr Calc Pharmacy 43.5 ml/min; Est GFR (African American) 50.8; Est GFR (Non-African American) 43.9; Globulin 3.5 gm/dl (2.5-4.0); Glucose 97 mg/dl (70-99); Lipase 100 U/L (73-393); Potassium 3.2 mmol/L (3.5-5.1); Sodium 143 mmol/L (136-145); Total Protein 6.8 gm/dl (6.4-8.2); Troponin I 0.044 ng/ml (0-0.045)
[2019-10-29] MEDS ORDERED: POTASSIUM CHLORIDE 20 MEQ TABCR PO STA (09:14)
[2019-10-29] MEDS ORDERED: AMLODIPINE BESYLATE 5 MG TAB PO ONE (09:28)
[2019-10-29] MEDS ORDERED: FUROSEMIDE 40 MG/4 ML VIAL IV STA (09:28)
[2019-10-29] MEDS ORDERED: ADENOSINE IV SOLN 3 MG/ML 2 ML VIAL IV STA ×2 (09:41)
[2019-10-29] MEDS ORDERED: ADENOSINE IV SOLN 3 MG/ML 2 ML VIAL IV ONE (09:42)
[2019-10-29] MEDS ORDERED: METOPROLOL TARTRATE 100 MG TAB PO STA (10:01)
--- NOTE | 2019-10-29 10:54 | History & Physical Report ---
Date of Service October 29, 2019 Assessment & Plan (1) Acute on chronic diastolic (congestive) heart failure: Rate related - suspect due to SVT although CXR similar to previous SVT episode in June she does appear to have more pulmonary edema than in Dec. Patient reports lung auscultation findings chronic and mentioned on all recent prior visits. I&Os, daily weights, low Na, heart health diet, fluid restrict 1500ml Continue to diurese with IV lasix 40 mg daily (pending BMP in AM), continue spironolactone 25mg PO daily (give todays dose once she gets to PCU) (2) Paroxysmal SVT (supraventricular tachycardia): Continue metoprolol succinate 100mg PO daily. Given tartrate in ER therefore will give another 50mg PO tartrate tonight with hold parameters. Responds to adenosine if she has further SVT episodes overnight. 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 No particular exacerbating factor noted - TSH with AM labs to assess current thyroid function. (3) Pulmonary hypertension: Suspected to be due to connective tissue disorder (possible limited scleroderma). Continue her usual tadaladil and macitentan (pt to bring this in). Continue trial medication Ralinepag (unknown if taking placebo or real medication). 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 (5) Hypothyroidism: TSH with AM labs Continue levothyroxine 100mcg PO daily (6) DVT prophylaxis: Early mobility. Likley short stay therefore chemical prophylaxis not warranted given low risk. Admission and Anticipated Discharge Date Admission Date: 10/29/2019 History of Present Illness Chief Complaint: Elevated heart rate Primary Care Provider: Liyah Wolff MD Dior Ramsey is a 69 year old female with known pulmonary hypertension and paroxysmal SVT who presents to the ER via EMS due to an episode of palpitations at home. She was determined to have SVT and was given adenosine on route to hospital which converted her to NSR on arrival here. However she had two further episode of SVT while in the ER requiring two further doses of adenosine with conversion to NSR on each occasion. She had not taken her usual metoprolol succinate yet this morning but was given a dose of metoprolol tartrate 100mg PO during her last episode of SVT while in the ER. When seen on admission she reported no chest pain, diaphoresis, nausea or vomiting. She is short of breath on exertion but at her baseline due to her ongoing pulmonary hypertension. Her last SVT episode was in June at which time she converted with 6mg IV adenosine x1 and was discharged from the ER with increased dose of metoprolol. Paroxysmal SVT episodes started approximately 1 year ago and EP study felt risk > benefit previously. Initially on amiodarone but given current suspected connective tissue disorder lung disease this was subsequently discontinued. She is under Dr Lee locally and Dr Louis ([facility]) for her pulmonary hypertension. Current in double blind placebo controlled trial with Ralinepag (in the process of titrating up). Allergies Allergy/AdvReac Type Severity Reaction Status Date / Time No Known Allergies Allergy Verified 10/29/19 09:34 Home Medications Home Medications Medication Instructions Recorded Confirmed Type Bepreve 1 drp OPB BID PRN 05/28/18 10/29/19 History levothyroxine 100 mcg PO QAM 05/28/18 10/29/19 History lutein 20 mg PO QAM 05/28/18 10/29/19 History macitentan 10 mg PO QDL 05/28/18 10/29/19 History nebulizers #1 ea 01/02/19 03/12/19 Rx tadalafil (pulm. hypertension) 20 40 mg PO HS tab 03/12/19 10/29/19 History mg tablet (pulmonary hypertension) amlodipine 10 mg PO QAM 07/03/19 10/29/19 History cyclosporine [Restasis] 1 drp OPB BID 07/03/19 10/29/19 History fluticasone propionate 2 spray INTRANASAL HS 07/03/19 10/29/19 History furosemide [Lasix] 40 mg PO QAM 07/03/19 10/29/19 History omeprazole 40 mg PO BIDM 07/03/19 10/29/19 History Ralinepag 700mcg 700 mcg PO QAM 10/29/19 10/29/19 History cholecalciferol (vitamin D3) 125 mcg PO QDL 10/29/19 10/29/19 History [Vitamin D3] metoprolol succinate 100 mg PO QAM 10/29/19 10/29/19 History potassium chloride 10 meq PO TID 10/29/19 10/29/19 History spironolactone 25 mg PO DAILY 10/29/19 10/29/19 History tafluprost (PF) [Zioptan (PF)] 1 drp OPB HS 10/29/19 10/29/19 History Past Med/Surg History Social History Smoking Status: Never smoker Hx Alcohol Use: No Hx Substance Use: No Preferred Language: Bulgarian Communication Ability: Effective Erp Business Analyst Required: No Beliefs That Will Affect Care: None Current Living Situation: Spouse Other Information That Helps Us Care for You: No Feels Safe at Home: Yes Safety Concerns: Feels Safe At This Time Review of Systems Review of Systems: All systems reviewed & are unremarkable except as noted in HPI & below Physical Exam Constitutional: WD/WN, vitals as above Eyes: PERRL, conjunctivae normal, anicteric sclerae ENMT: external ear and nose normal, oropharynx normal Neck: trachea midline, no thyromegaly Respiratory: normal respiratory effort and able to speak in complete sentences; no respiratory distress, no labored breathing, does not use accessory muscles and no cough Auscultation: + crackles (fine on right mid zone to base (pt reports chronic), left side clear); no diminished lung sounds, no rales, no rhonchi and no wheezes Cardiovascular: Rate/Rhythm: regular rate and regular rhythm Heart Sounds: no murmur Vessels: no JVD Extremities: normal capillary refill; no calf tenderness and no pedal edema Gastrointestinal (Abdomen): normal bowel sounds, soft, nontender, no hepatosplenomegaly Musculoskeletal: no cyanosis or clubbing, extremities motor strength 5/5 Skin: turgor not decreased and no rashes few telangiectasias on face Neurologic: moves all extremities and awake; not confused Psychiatric: A+Ox3, euthymic affect Lymphatic: no cervical or axillary lymphadenopathy Results & Data Results & Data ([facility]) Vital Signs (Past 12 Hours) Vital Signs Temp Pulse Resp BP Pulse Ox 10/29/19 10:01 152 H 26 H 10/29/19 10:00 150 H 23 131/75 10/29/19 09:45 153 H 25 H 10/29/19 09:31 154 H 23 10/29/19 09:30 159 H 16 145/66 H 10/29/19 09:15 99 H 25 H 90 10/29/19 09:00 95 H 23 91 10/29/19 08:45 91 H 20 92 10/29/19 08:30 93 H 25 H 96 10/29/19 08:25 93 H 28 H 95 10/29/19 08:24 96 10/29/19 08:23 95 H 22 151/70 H 96 10/29/19 08:08 37 C 98 H 20 151/70 H 96 Diagnostic Findings XR chest 1V portable IMPRESSION: 1. Radiographic evidence of congestive failure/fluid overload 2. Stable right hilar enlargement consistent with the patient's known adenopathy 3. No evidence of focal pulmonary consolidation ECG Indication: tachycardia Rate (beats per minute): 91 Rhythm: sinus tachycardia Findings: + 1st degree AV block and + nonspecific-ST abn Comparison ECG Date: from (July 03, 2019) Change: no significant change Code Status & VTE Plan Code Status Full as discussed wtih the patient VTE Prophylaxis Plan VTE Prophylaxis will be ordered: Yes PG Care Time/CCT Total # of Minutes Spent Total Time Spent with Patient: Total time spent is greater than 50% in coordination of care (as documented) at patient's floor/unit and/or counseling patient: Coding Level of Care Code 30768 Initial Inpt Care Lvl 3 Diagnoses Acute on chronic diastolic (congestive) heart failure I50.33 Paroxysmal SVT (supraventricular tachycardia) I47.1 Pulmonary hypertension I27.20 Connective tissue disorder M35.9 Hypothyroidism E03.9 DVT prophylaxis Z29.9
[2019-10-29] MEDS ORDERED: ACETAMINOPHEN 325 MG TAB PO PRN (11:02)
[2019-10-29] MEDS ORDERED: SPIRONOLACTONE 25 MG TAB PO ONE (12:07)
[2019-10-29] MEDS: POTASSIUM CHLORIDE 10 MEQ TABCR PO SCH ×2 (13:05→21:11)
[2019-10-29] MEDS: CHOLECALCIFEROL 1,000 UNITS 25 MCG TAB PO SCH (13:05)
--- NOTE | 2019-10-29 13:32 | Emergency Department Note ---
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 The patient reports she has a history of this previously and is needed adenosine to break it. EMS gave the patient 6 of adenosine with improvement in her symptoms. The patient denies any chest pain or shortness of breath. She does have a history of pulmonary hypertension which she is on medic amber for and she sees a specialist out of [facility]. She reports she did not take her morning medications this morning when this happened. Home Medications Home Medications Medication Instructions Recorded Confirmed Type Bepreve 1 drp OPB BID PRN 05/28/18 10/29/19 History levothyroxine 100 mcg PO QAM 05/28/18 10/29/19 History lutein 20 mg PO QAM 05/28/18 10/29/19 History macitentan 10 mg PO QDL 05/28/18 10/29/19 History nebulizers #1 ea 01/02/19 03/12/19 Rx tadalafil (pulm. hypertension) 20 40 mg PO HS tab 03/12/19 10/29/19 History mg tablet (pulmonary hypertension) Restasis 1 drp OPB BID 07/03/19 10/29/19 History amlodipine 10 mg PO QAM 07/03/19 10/29/19 History fluticasone propionate 2 spray INTRANASAL HS 07/03/19 10/29/19 History furosemide [Lasix] 40 mg PO QAM 07/03/19 10/29/19 History omeprazole 40 mg PO BIDM 07/03/19 10/29/19 History Ralinepag 700mcg 700 mcg PO QAM 10/29/19 10/29/19 History Zioptan (PF) 1 drp OPB HS 10/29/19 10/29/19 History cholecalciferol (vitamin D3) 125 mcg PO QDL 10/29/19 10/29/19 History [Vitamin D3] potassium chloride 10 meq PO TID 10/29/19 10/29/19 History spironolactone 25 mg PO DAILY 10/29/19 10/29/19 History metoprolol succinate 50 mg PO BID #0 tab 10/30/19 10/29/19 Rx Allergies Allergy/AdvReac Type Severity Reaction Status Date / Time No Known Allergies Allergy Verified 10/29/19 09:34 Past Med/Surg History Medical History Breast cancer (Acute) Hypertension (Chronic) Hypothyroidism (Chronic) Pulmonary hypertension (Chronic) Family History Other Family history non-contributory Social History Smoking Status: Never smoker Hx Alcohol Use: No Hx Substance Use: No Preferred Language: Urugu[place] Communication Ability: Effective Test Architect Required: No Beliefs That Will Affect Care: None Current Living Situation: Spouse Other Information That Helps Us Care for You: No Feels Safe at Home: Yes Safety Concerns: Feels Safe At This Time Review of Systems A total of 10 systems reviewed and were otherwise negative Physical Exam Vital Signs Vital Signs - 24 hr 10/29/19 08:08 10/29/19 08:23 10/29/19 08:24 Temperature 37 C Temperature Source Oral Pulse Rate 98 H 95 H Pulse Rate from SpO2 Sensor 95 H Pulse Rhythm Regular Respiratory Rate 20 22 Respiratory Effort / Characteristics Non-Labored Respiratory Depth Normal Blood Pressure 151/70 H 151/70 H Blood Pressure Mean 97 98 Pulse Oximetry 96 96 96 Oxygen Delivery Method Room Air Room Air Sepsis Recent Fever Within 48 Hours No Sepsis New/Unexplained Change in Mental Status No Sepsis Action Taken by Nursing No Action Required 10/29/19 08:25 10/29/19 08:30 10/29/19 08:45 Temperature Temperature Source Pulse Rate 93 H 93 H 91 H Pulse Rate from SpO2 Sensor 93 H 94 H 91 H Pulse Rhythm Respiratory Rate 28 H 25 H 20 Respiratory Effort / Characteristics Respiratory Depth Blood Pressure Blood Pressure Mean Pulse Oximetry 95 96 92 Oxygen Delivery Method Sepsis Recent Fever Within 48 Hours Sepsis New/Unexplained Change in Mental Status Sepsis Action Taken by Nursing 10/29/19 09:00 10/29/19 09:15 10/29/19 09:30 Temperature Temperature Source Pulse Rate 95 H 99 H 159 H Pulse Rate from SpO2 Sensor 95 H 99 H Pulse Rhythm Respiratory Rate 23 25 H 16 Respiratory Effort / Characteristics Respiratory Depth Blood Pressure 145/66 H Blood Pressure Mean 96 Pulse Oximetry 91 90 Oxygen Delivery Method Sepsis Recent Fever Within 48 Hours Sepsis New/Unexplained Change in Mental Status Sepsis Action Taken by Nursing 10/29/19 09:31 10/29/19 09:45 10/29/19 10:00 Temperature Temperature Source Pulse Rate 154 H 153 H 150 H Pulse Rate from SpO2 Sensor Pulse Rhythm Respiratory Rate 23 25 H 23 Respiratory Effort / Characteristics Respiratory Depth Blood Pressure 131/75 Blood Pressure Mean 98 Pulse Oximetry Oxygen Delivery Method Sepsis Recent Fever Within 48 Hours Sepsis New/Unexplained Change in Mental Status Sepsis Action Taken by Nursing 10/29/19 10:01 10/29/19 10:15 10/29/19 10:30 Temperature Temperature Source Pulse Rate 152 H 156 H 55 L Pulse Rate from SpO2 Sensor Pulse Rhythm Respiratory Rate 26 H 22 28 H Respiratory Effort / Characteristics Respiratory Depth Blood Pressure Blood Pressure Mean Pulse Oximetry Oxygen Delivery Method Sepsis Recent Fever Within 48 Hours Sepsis New/Unexplained Change in Mental Status Sepsis Action Taken by Nursing 10/29/19 10:49 10/29/19 11:00 Temperature Temperature Source Pulse Rate 99 H 90 Pulse Rate from SpO2 Sensor Pulse Rhythm Respiratory Rate 23 19 Respiratory Effort / Characteristics Respiratory Depth Blood Pressure Blood Pressure Mean Pulse Oximetry Oxygen Delivery Method Sepsis Recent Fever Within 48 Hours Sepsis New/Unexplained Change in Mental Status Sepsis Action Taken by Nursing VITAL SIGNS - Vital signs and nursing notes were reviewed. GENERAL - 69-year-old female appearing stated age who is in no acute distress. Communicates well with provider and answers questions appropriately. SKIN - Without rashes. HEAD - NC/AT. EYES - PERRL with EOMI bilaterally. Sclera anicteric. Palpebral conjunctiva pink and moist with no injection noted. EARS - No deformities of external structures noted on gross examination bilaterally. No pain elicited with palpation of the tragus bilaterally. External auditory canals without discharge or otorrhea. Tympanic membranes pearly chou without retraction or bulging. No fluid or purulent material visualized behind the TM. Handle of malleus, umbo, cone of light, pars tensa/flaccid all easily visualized. NOSE - Midline and without cyanosis. No epistaxis or purulent drainage noted. Septum midline without deviation or septal hematoma noted. MOUTH/OROPHARYNX - Without perioral cyanosis. Buccal mucosa pink and moist and without leukoplakia. Tongue midline with equal elevation of palate bilaterally. No tonsillar hypertrophy, erythema, or exudates noted. dentition noted. NECK - Neck with FROM. Supple to palpation. lymphadenopathy noted. No nuchal rigidity. LUNGS - Chest wall symmetric without accessory muscle use, intercostals retractions, or central cyanosis. Normal vesicular breath sounds CTA B/L. No wheezes, rales, or rhonchi appreciated. CARDIAC - RRR with S1/S2. No murmur, rubs, or gallops appreciated. ABDOMEN - Abdominal contour without pulsations or visible masses. BS normoactive all four quadrants. No tenderness, palpable masses, hepatosplenomegaly, or ascites noted. EXTREMITIES - No clubbing or peripheral cyanosis. No pretibial edema present. +3/5 radial, posterior tibial, and dorsalis pedis pulses palpated throughout. +5/5 strength noted in UE/LE bilaterally. NEUROLOGIC - Cranial nerves II through XII grossly intact. Sensory intact to light touch throughout. Patellar reflexes +2/4. PSYCH - A&Ox3 and cooperates fully with examiner. Pt is very pleasant and interacts well with examiner. Course Administered Medications Discontinued Medications Adenosine (Adenosine) 6 mg IV NOW STA Stop: 10/29/19 09:42 Last Admin: 10/29/19 09:45 Dose: 6 mg Documented by: [id number] Adenosine (Adenosine) 12 mg IV NOW STA Stop: 10/29/19 09:42 Last Admin: 10/29/19 11:11 Dose: Not Given Documented by: [id number] Adenosine (Adenosine) Confirm Administered Dose 6 mg IV .STK-MED ONE Stop: 10/29/19 09:43 Last Admin: 10/29/19 10:33 Dose: 6 mg Documented by: [id number] Amlodipine Besylate (Norvasc) 10 mg PO NOW ONE Stop: 10/29/19 09:29 Last Admin: 10/29/19 09:38 Dose: 10 mg Documented by: [id number] Amlodipine Besylate (Norvasc) 10 mg PO [facility] Stop: 11/29/19 08:59 Last Admin: 10/30/19 08:41 Dose: 10 mg Documented by: [id number] Fluticasone Propionate (Flonase) 2 sprays [facility] Stop: 11/28/19 20:59 Last Admin: 10/29/19 21:12 Dose: Not Given Documented by: [id number] Furosemide (Lasix) 40 mg IV NOW [facility] Stop: 10/29/19 09:29 Last Admin: 10/29/19 09:38 Dose: 40 mg Documented by: [id number] Furosemide (Lasix) 40 mg PO [facility] Stop: 11/29/19 08:59 Last Admin: 10/30/19 08:41 Dose: 40 mg Documented by: [id number] Magnesium Sulfate/Dextrose (Magnesium Sulfate / D5w) 1 gm in 100 mls @ 50 mls/ hr IV ONE ONE Stop: 10/29/19 10:23 Last Infusion: 10/29/19 11:23 Dose: 0 mls/hr Documented by: [id number] Admin: 10/29/19 09:31 Dose: 50 mls/hr Documented by: [id number] [facility] Stop: 11/29/19 06:29 Last Admin: 10/30/19 06:36 Dose: 100 mcg Documented by: [id number] Metoprolol Succinate (Toprol Xl) 100 mg PO [facility] Stop: 11/29/19 08:59 Last Admin: 10/30/19 08:42 Dose: 100 mg Documented by: [id number] Metoprolol Tartrate (Lopressor) 100 mg PO NOW STA Stop: 10/29/19 10:02 Last Admin: 10/29/19 10:32 Dose: 100 mg Documented by: [id number] Metoprolol Tartrate (Lopressor) 50 mg PO ONE ONE Stop: 10/29/19 21:01 Last Admin: 10/29/19 21:12 Dose: 50 mg Documented by: [id number] Miscellaneous (Order Awaiting Action) 1 ea N/A QS [facility] Stop: 11/28/19 15:59 Last Admin: 10/30/19 08:41 Dose: Not Given Documented by: [id number] Admin: 10/29/19 23:11 Dose: Not Given Documented by: [id number] Admin: 10/29/19 16:17 Dose: Not Given Documented by: [id number] Miscellaneous (Order Awaiting Action) 1 ea N/A QS [facility] Stop: 11/28/19 15:59 Last Admin: 10/30/19 08:41 Dose: Not Given Documented by: [id number] Admin: 10/29/19 23:11 Dose: Not Given Documented by: [id number] Admin: 10/29/19 16:17 Dose: Not Given Documented by: [id number] Miscellaneous (Order Awaiting Action) 1 ea N/A QS [facility] Stop: 11/28/19 15:59 Last Admin: 10/30/19 08:41 Dose: Not Given Documented by: [id number] Admin: 10/29/19 23:11 Dose: Not Given Documented by: [id number] Admin: 10/29/19 16:18 Dose: Not Given Documented by: [id number] Tadalafil - Patient' (s Own Med) 2 ea PO HS [facility] Stop: 11/28/19 20:59 Last Admin: 10/29/19 21:12 Dose: 2 tab Documented by: [id number] Macitentan - Patient ('s Own Med) 1 ea PO QDL [facility] Stop: 11/28/19 11:29 Last Admin: 10/30/19 10:17 Dose: 1 cap Documented by: [id number] Admin: 10/29/19 16:16 Dose: 10 mg Documented by: [id number] Pantoprazole Sodium (Protonix) 40 mg PO BIDM RAJENDRA Stop: 11/28/19 16:59 Last Admin: 10/30/19 08:43 Dose: 40 mg Documented by: [id number] Admin: 10/29/19 16:18 Dose: 40 mg Documented by: [id number] Potassium Chloride (Klor-Con M20) 40 meq PO NOW STA Stop: 10/29/19 09:15 Last Admin: 10/29/19 09:31 Dose: 40 meq Documented by: [id number] Potassium Chloride (Klor-Con M10) 10 meq PO TID RAJENRDA Stop: 11/28/19 13:59 Last Admin: 10/30/19 08:43 Dose: 10 meq Documented by: [id number] Admin: 10/29/19 21:11 Dose: 10 meq Documented by: [id number] Admin: 10/29/19 13:05 Dose: 10 meq Documented by: [id number] Spironolactone (Aldactone) 25 mg PO DAILY RAJENDRA Stop: 11/29/19 08:59 Last Admin: 10/30/19 10:15 Dose: 25 mg Documented by: [id number] Spironolactone (Aldactone) 25 mg PO NOW ONE Stop: 10/29/19 12:08 Last Admin: 10/29/19 16:15 Dose: 25 mg Documented by: [id number] Vitamin D (Vitamin D3) 5,000 units PO QDL RAJENDRA Stop: 11/28/19 12:06 Last Admin: 10/30/19 10:16 Dose: 5,000 units Documented by: [id number] Admin: 10/29/19 13:05 Dose: 5,000 units Documented by: [id number] Critical Care Time I have personally spent greater than 90 minutes of critical care time in the direct management of this patient. This includes bedside care, interpretation of diagnostic studies, and testing, discussion with consultants, patient, and family members, and other required patient management activities. This 90 minutes is in excess of all separately billable procedures. Medical Decision Making Differential Diagnosis Cardiac ischemia, aortic dissection, pulmonary embolism, pneumothorax, pneumonia, pericarditis, myocarditis, esophageal rupture, GERD, cholecystitis, pancreatitis, musculoskeletal, as well as other pathologies. Medical Records Attestation: I reviewed the patient's medical records. Home Medications Current Medication List: was personally reviewed by me Laboratory Data Attestation: I reviewed the patient's lab results. Result diagrams: 10/29/19 08:35 10/30/19 05:14 Lab Results 10/29/19 10/29/19 10/29/19 Range/Units 08:35 08:35 08:35 WBC 7.44 (4.8-10.8) K/uL RBC 4.35 (4.2-5.4) M/uL Hgb 12.0 (12.0-16.0) g/dL Hct 37.9 (37-47) % MCV 87.1 (80-100) fL MCH 27.6 (25-34) pg MCHC 31.7 L (32-36) g/dL RDW Std Deviation 50.6 H (36.4-46.3) fL RDW Coeff of Luiz 15.6 H (11.5-14.5) % Plt Count 227 (130-400) K/uL MPV 9.2 (7.4-10.4) fL Immature Gran % (Auto) 0.1 % Neut % (Auto) 73.9 % Lymph % (Auto) 16.8 % [place] % (Auto) 6.7 % Eos % (Auto) 2.4 % Baso % (Auto) 0.1 % Neut # (Auto) 5.49 (1.4-6.5) K/uL Lymph # (Auto) 1.25 (1.2-3.4) K/uL [place] # (Auto) 0.50 (0.11-0.59) K/uL Eos # (Auto) 0.18 (0-0.5) K/uL Baso # (Auto) 0.01 (0-0.2) K/uL Immature Gran # (Auto) 0.01 (0.00-0.02) K/uL PT 10.7 (9.0-12.0) Seconds INR 1.0 (0.9-1.1) APTT 24.8 (21.0-31.0) Seconds PTT Ratio 0.9 Sodium 143 (136-145) mmol/L Potassium 3.2 L (3.5-5.1) mmol/L Chloride 111 H (98-107) mmol/L Carbon Dioxide 23 (21-32) mmol/L Anion Gap 10.0 (3-11) BUN 17 (7-18) mg/dl Creatinine 1.25 H (0.6-1.2) mg/dl Est Cr Clr Drug Dosing 43.5 ml/min Est GFR ( Amer) 50.8 Est GFR (Non-Af Amer) 43.9 BUN/Creatinine Ratio 13.2 (10-20) Glucose 97 (70-99) mg/dl Calcium 8.8 (8.5-10.1) mg/dl Total Bilirubin 0.4 (0.2-1) mg/dl AST 14 L (15-37) U/L ALT 12 (12-78) U/L Alkaline Phosphatase 66 (45-117) U/L Total Creatine Kinase 60 (26-192) U/L CK-MB (CK-2) < 1.0 (0.5-3.6) ng/ml CK/CKMB % Calc TNP Troponin I 0.044 (0-0.045) ng/ml NT-Pro-B Natriuret Pep (0-900) pg/ml Total Protein 6.8 (6.4-8.2) gm/dl Albumin 3.3 L (3.4-5.0) gm/dl Globulin 3.5 (2.5-4.0) gm/dl Albumin/Globulin Ratio 1.0 (0.9-2) Lipase 100 (73-393) U/L Specimen Hemolysis 10/29/19 Range/Units 08:35 WBC (4.8-10.8) K/uL RBC (4.2-5.4) M/uL Hgb (12.0-16.0) g/dL Hct (37-47) % MCV (80-100) fL MCH (25-34) pg MCHC (32-36) g/dL RDW Std Deviation (36.4-46.3) fL RDW Coeff of Luiz (11.5-14.5) % Plt Count (130-400) K/uL MPV (7.4-10.4) fL Immature Gran % (Auto) % Neut % (Auto) % Lymph % (Auto) % [place] % (Auto) % Eos % (Auto) % Baso % (Auto) % Neut # (Auto) (1.4-6.5) K/uL Lymph # (Auto) (1.2-3.4) K/uL [place] # (Auto) (0.11-0.59) K/uL Eos # (Auto) (0-0.5) K/uL Baso # (Auto) (0-0.2) K/uL Immature Gran # (Auto) (0.00-0.02) K/uL PT (9.0-12.0) Seconds INR (0.9-1.1) APTT (21.0-31.0) Seconds PTT Ratio Sodium (136-145) mmol/L Potassium (3.5-5.1) mmol/L Chloride (98-107) mmol/L Carbon Dioxide (21-32) mmol/L Anion Gap (3-11) BUN (7-18) mg/dl Creatinine (0.6-1.2) mg/dl Est Cr Clr Drug Dosing ml/min Est GFR ( Amer) Est GFR (Non-Af Amer) BUN/Creatinine Ratio (10-20) Glucose (70-99) mg/dl Calcium (8.5-10.1) mg/dl Total Bilirubin (0.2-1) mg/dl AST (15-37) U/L ALT (12-78) U/L Alkaline Phosphatase (45-117) U/L Total Creatine Kinase (26-192) U/L CK-MB (CK-2) (0.5-3.6) ng/ml CK/CKMB % Calc Troponin I (0-0.045) ng/ml NT-Pro-B Natriuret Pep 326 (0-900) pg/ml Total Protein (6.4-8.2) gm/dl Albumin (3.4-5.0) gm/dl Globulin (2.5-4.0) gm/dl Albumin/Globulin Ratio (0.9-2) Lipase (73-393) U/L Specimen Hemolysis ECG Data Attestation: I personally reviewed and interpreted this ECG as follows: Indication: + SOB/dyspnea Rate (beats per minute): 91 Rhythm: + sinus rhythm ECG Intervals/blocks: + First degree AV block and + Normal QT-c (450) ECG [place]: + Normal ECG ST segments: no ST depression and no ST elevation Comparison ECG Date: from (07/03/2019) Change: no significant change MDM Narrative Patient was seen and evaluated as above in room C9. Review was performed of nursing notes and vital signs. I did review pertinent previous visits and patient history. After obtaining a thorough history and physical examination the above work up was performed. This is a 69-year-old female who originally came to the emergency department in SVT. This was broken by EMS with adenosine as given via medical command via myself. While in the emergency department the patient again developed SVT and she required additional doses of adenosine. She does appear to be volume overloaded on her chest x-ray and was started on Lasix. 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 Because of the multiple doses of adenosine as well as the fluid overload I did discuss the case with the hospitalist service who did agree to admit the patient. An order was placed for continuous cardiac monitoring. The monitor shows a rate of 66 with Normal Sinus rhythm. The patient was evaluated during the global COVID-19 pandemic, and that diagnosis was suspected/considered upon their initial presentation. Their evaluation, treatment and testing was consistent with current guidelines for patients who present with complaints or symptoms that may be related to COVID- 19. Impression & Plan SVT (supraventricular tachycardia), CHF (congestive heart failure), Pulmonary hypertension Discharge Plan Visit Data *Final* Discharge Date/Time: 10/29/19 11:56 Chief Complaint: Cardiac Assessment ED Provider: Jaun Simpson Discharge Problem: SVT (supraventricular tachycardia), CHF (congestive heart failure), Pulmonary hypertension Patient Disposition: Admitted As Inpatient Discharge Instructions Interventions: ED Discharge Assessment Last Done: 10/29/19 11:56 Discharge Problem: CHF (congestive heart failure) Qualifiers: Heart failure type: unspecified Heart failure chronicity: unspecified Qualified Code(s): I50.9 - Heart failure, unspecified
[2019-10-29] MEDS: MACITENTAN PO SCH (16:16)
[2019-10-29] MEDS: RESTASIS: ORDER AWAITING ACTION SCH ×2 (16:17→23:11)
[2019-10-29] MEDS: [UNRECOGNIZED DRUG - OTHER] SCH ×2 (16:18→23:11)
[2019-10-29] MEDS: PANTOprazole 40 MG TAB PO SCH (16:18)
--- NOTE | 2019-10-29 17:52 | Electrocardiogram Report ---
Test Reason : Blood Pressure : / mmHG Vent. Rate : 091 BPM Atrial Rate : 091 BPM P-R Int : 222 ms QRS Dur : 094 ms QT Int : 366 ms P-R-T Axes : 039 053 044 degrees QTc Int : 450 ms Poor data quality, interpretation may be adversely affected Sinus rhythm with 1st degree A-V block Possible Left atrial enlargement Nonspecific ST abnormality Abnormal ECG When compared with ECG of 03-JUL-2019 13:23, No significant change was found Confirmed by Suraj Anderson ([id number]) on 10/29/2019 5:51:40 PM Referred By: REFERRED SELF Confirmed By:Pillo Anderson
--- NOTE | 2019-10-29 17:53 | Electrocardiogram Report ---
Test Reason : Blood Pressure : / mmHG Vent. Rate : 103 BPM Atrial Rate : 103 BPM P-R Int : 216 ms QRS Dur : 084 ms QT Int : 346 ms P-R-T Axes : 053 067 034 degrees QTc Int : 453 ms Sinus tachycardia with 1st degree A-V block with Premature atrial complexes Possible Left atrial enlargement Nonspecific ST abnormality Abnormal ECG When compared with ECG of 29-OCT-2019 08:29, (unconfirmed) Premature atrial complexes are now Present Confirmed by Suraj Anderson ([id number]) on 10/29/2019 5:53:16 PM Referred By: REFERRED SELF Confirmed By:Pillo Anderson
[2019-10-29] MEDS ORDERED: FLUTICASONE PROPIONATE NA SPR 16 GM BTL NAE SCH (21:00)
[2019-10-29] MEDS ORDERED: METOPROLOL TARTRATE 50 MG TAB PO ONE (21:00)
[2019-10-29] MEDS ORDERED: TADALAFIL PO SCH (21:00)
[2019-10-30] MEDS ORDERED: LEVOTHYROXINE SODIUM 100 MCG TABLET PO SCH (06:30)
[2019-10-30 06:31] LABS: BUN Creatinine Ratio 15.5 (10-20); Creatinine Clr Calc Pharmacy 40.6 ml/min; Est GFR (African American) 45.1; Est GFR (Non-African American) 38.9; Potassium 3.7 mmol/L (3.5-5.1); Thyroid Stimulating Hormone 2.3 uIu/ml (0.300-4.500)
[2019-10-30] MEDS: [UNRECOGNIZED DRUG - OTHER] SCH (08:41)
[2019-10-30] MEDS: RESTASIS: ORDER AWAITING ACTION SCH (08:41)
[2019-10-30] MEDS: PANTOprazole 40 MG TAB PO SCH (08:43)
[2019-10-30] MEDS: POTASSIUM CHLORIDE 10 MEQ TABCR PO SCH (08:43)
[2019-10-30] MEDS ORDERED: NON-FORMULARY MEDICATION (Lutein 20 MG) PO SCH (09:00)
[2019-10-30] MEDS ORDERED: METOPROLOL SUCC 50MG EXT REL TAB PO SCH (09:00)
[2019-10-30] MEDS ORDERED: AMLODIPINE BESYLATE 5 MG TAB PO SCH (09:00)
[2019-10-30] MEDS ORDERED: SPIRONOLACTONE 25 MG TAB PO SCH (09:00)
[2019-10-30] MEDS ORDERED: FUROSEMIDE 40 MG TAB PO SCH (09:00)
--- NOTE | 2019-10-30 09:06 | Cardiology Consultation ---
Date of Consultation Patient felt well yesterday morning. Prior to taking her morning beta-chacho dose she noted a sudden onset of her heart racing. It was a fast regular t achycardia. This is similar to what she is had in the past. She has not missed any of her beta-chacho doses. She does note that she had some pedal edema and some mild abdominal distention last week that required an extra dose of diuretics.Outside of that things have been relatively stable. She can climb a flight of stairs without having to stop on her current medication regimen for pulmonary hypertension. She denies any orthostatic symptoms she is chronically flushed with the medications and does note loose stools on a regular basis.She denies any chest pain or chest pressure. Outside of yesterday's episode she has not had any recurrent palpitations. She has any presyncope or syncope or falls. Her appetite has been so-so she notes with her experimental medication other foods taste very salty or very sweet but she cannot taste anything in between.The rest of a complete review of systems is negative October 30, 2019 History of Present Illness Attending Physician: Scott Bowser MD Allergies Allergy/AdvReac Type Severity Reaction Status Date / Time No Known Allergies Allergy Verified 10/29/19 09:34 Home Medications Home Medications Medication Instructions Recorded Confirmed Type Bepreve 1 drp OPB BID PRN 05/28/18 10/29/19 History levothyroxine 100 mcg PO QAM 05/28/18 10/29/19 History lutein 20 mg PO QAM 05/28/18 10/29/19 History macitentan 10 mg PO QDL 05/28/18 10/29/19 History nebulizers #1 ea 01/02/19 03/12/19 Rx tadalafil (pulm. hypertension) 20 40 mg PO HS tab 03/12/19 10/29/19 History mg tablet (pulmonary hypertension) amlodipine 10 mg PO QAM 07/03/19 10/29/19 History cyclosporine [Restasis] 1 drp OPB BID 07/03/19 10/29/19 History fluticasone propionate 2 spray INTRANASAL HS 07/03/19 10/29/19 History furosemide [Lasix] 40 mg PO QAM 07/03/19 10/29/19 History omeprazole 40 mg PO BIDM 07/03/19 10/29/19 History Ralinepag 700mcg 700 mcg PO QAM 10/29/19 10/29/19 History cholecalciferol (vitamin D3) 125 mcg PO QDL 10/29/19 10/29/19 History [Vitamin D3] metoprolol succinate 100 mg PO QAM 10/29/19 10/29/19 History potassium chloride 10 meq PO TID 10/29/19 10/29/19 History spironolactone 25 mg PO DAILY 10/29/19 10/29/19 History tafluprost (PF) [Zioptan (PF)] 1 drp OPB HS 10/29/19 10/29/19 History Patient History Medical History Breast cancer (Acute) Hypertension (Chronic) Hypothyroidism (Chronic) Pulmonary hypertension (Chronic) Family History Other Family history non-contributory Social History Smoking Status: Never smoker Hx Alcohol Use: No Hx Substance Use: No Preferred Language: Polish Communication Ability: Effective 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 Severe pulmonary hypertension by cardiac catheterization 03/2017 with an RA pressure of 20, RV pressure of 70/20 with a PA pressure of 75/29 and a wedge pressure of 12. With nitric oxide, her PA pressure dropped, but her cardiac output did not improve. 2. No evidence of epicardial coronary artery disease by catheterization 03/2017. 3. Echocardiogram In [place] July 2019 with normal LV size and function and normal RV size and function 3B. Repeat cardiac catheterization in [place] suggesting severe pulmonary hypertension with a marked improvement in her overall PA pressures 4. Hypothyroidism. 5. GERD. 6. Hypertension. 7. Breast cancer status post radiation therapy, March 2013. 8. Mild obstructive sleep apnea with significant hypoxemia tolerating BiPAP. 9. Palpitations consistent with SVT (likely AV ayesha in origin or Atach). 10. Ongoing work-up for interstitial lung disease SOCIAL HISTORY: She did have secondary smoke exposure as a child. She denies any tobacco. She is . She watches her grandson. 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 FAMILY HISTORY: Mom at 69 of complications related to rheumatic fever. Dad of COPD. She has 2 brothers. ALLERGIES: No known drug allergies. MEDICATIONS: Reviewed in electronic medical record. PHYSICAL EXAMINATION: GENERAL: She is awake, alert, oriented x3. She is in no acute distress. She is a well-appearing female. She does appear mildly short of breath talking in sentences. HEENT: 2+ carotid upstrokes. No evidence of carotid bruits. Jugular venous pressure appeared normal. Sclerae is anicteric. Hearing is normal. LUNGS: Clear to auscultation bilaterally. No rales, rhonchi or wheezing. HEART: Regular and tachycardic. Her second heart sound is accentuated and palpable. ABDOMEN: Soft, nontender, nondistended. Positive bowel sounds. EXTREMITIES: No clubbing, cyanosis. She has trace bilateral lower extremity edema. PSYCHIATRIC: Affect appeared appropriate. . IMPRESSIONS: 1. 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 2. Severe pulmonary hypertension. 3. Normal left ventricular function with a dilated right ventricle and RV dysfunction. 4. Negative cardiac catheterization for coronary artery disease. At this point Dior can be discharged. Her potassium has been repleted she did receive an extra dose of diuretics and in fact she is slightly more prerenal. I would not give her any additional diuretics other than her baseline. She should equilibrate on her own. I did discuss with her that we can break her Toprol in half so she gets 50 mg of Toprol-XL in the morning and 50 mg at night. It is possible that she has less beta-chacho effect towards the tail end of her dose and that is why she had an arrhythmia yesterday. She is scheduled to go out to [place] in November again and I asked that she discuss with the pulmonary hypertension specialist there whether they would consider an SVT ablation. In the past it was felt that the risks of sedation given her severe pulmonary hypertension outweigh the benefits of ablative therapy. There is also been a conversation with regards to her Cialis as a potential trigger for her arrhythmias. [place] did not feel that this was the case. Her PA pressures although still severely elevated are much better than they were. This may be the opportune time to consider an EP study and ablation given the risks and benefits. Otherwise she seems stable. I did not make any other changes to her medical regimen she can be discharged home.She can keep her normal follow-up as previously scheduled with me
[2019-10-30] MEDS: CHOLECALCIFEROL 1,000 UNITS 25 MCG TAB PO SCH (10:16)
[2019-10-30] MEDS: MACITENTAN PO SCH (10:17)
--- NOTE | 2019-10-30 17:29 | Discharge Summary ---
Date of Service October 30, 2019 Admission HPI Per Admitting Provider Dior Ramsey is a 69 year old female with known pulmonary hypertension and paroxysmal SVT who presents to the ER via EMS due to an episode of palpitations at home. She was determined to have SVT and was given adenosine on route to hospital which converted her to NSR on arrival here. However she had two further episode of SVT while in the ER requiring two further doses of adenosine with conversion to NSR on each occasion. She had not taken her usual metoprolol succinate yet this morning but was given a dose of metoprolol tartrate 100mg PO during her last episode of SVT while in the ER. When seen on admission she reported no chest pain, diaphoresis, nausea or vomiting. She is short of breath on exertion but at her baseline due to her ongoing pulmonary hypertension. Her last SVT episode was in June at which time she converted with 6mg IV adenosine x1 and was discharged from the ER with increased dose of metoprolol. Paroxysmal SVT episodes started approximately 1 year ago and EP study felt risk > benefit previously. Initially on amiodarone but given current suspected connective tissue disorder lung disease this was subsequently discontinued. She is under Dr Lee locally and Dr Louis ([facility]) for her pulmonary hypertension. Current in double blind placebo controlled trial with Ralinepag (in the process of titrating up). Principal Diagnosis SVT Discharge Exam Constitutional WD/WN, vitals as above Eyes PERRL, conjunctivae normal, anicteric sclerae ENMT external ear and nose normal, oropharynx normal Neck trachea midline, no thyromegaly Respiratory normal respiratory effort and able to speak in complete sentences; no respiratory distress, no labored breathing, does not use accessory muscles and no cough Auscultation: + crackles (fine on right mid zone to base (pt reports chronic), left side clear); no diminished lung sounds, no rales, no rhonchi and no wheezes Cardiovascular Rate/Rhythm: regular rate and regular rhythm Heart Sounds: no murmur Vessels: no JVD Extremities: normal capillary refill; no calf tenderness and no pedal edema Gastrointestinal (Abdomen) normal bowel sounds, soft, nontender, no hepatosplenomegaly Musculoskeletal no cyanosis or clubbing, extremities motor strength 5/5 Skin turgor not decreased and no rashes Neurologic moves all extremities and awake; not confused Psychiatric A+Ox3, euthymic affect Lymphatic no cervical or axillary lymphadenopathy Discharge Data Allergies Allergy/AdvReac Type Severity Reaction Status Date / Time No Known Allergies Allergy Verified 10/29/19 09:34 Consultations 10/29/19 11:00 ED Decision to Admit Stat 10/29/19 11:02 Consult Cardiology Routine Hospital Course (1) Acute on chronic diastolic (congestive) heart failure: Rate related - suspect due to SVT although CXR similar to previous SVT episode in June she does appear to have more pulmonary edema than in Dec. - Diuresed with IV lasix 40 mg - Seen by her home fuller brush man on 10/29 (Dr. Lee) who felt that she was at baseline after her SVT was broken by adenosine in the EMS squad truck. She will follow up with per pulmonology/cardiology team in [place]. (2) Paroxysmal SVT (supraventricular tachycardia): Continue metoprolol succinate 100mg PO daily. Given tartrate in ER therefore will give another 50mg PO tartrate tonight with hold parameters. Responds to adenosine if she has further SVT episodes overnight. Given her multiple co-morbidities and complex medical history will defer to cardiology to increase this as necessary and consult her usual fuller brush man Dr Lee. No particular exacerbating factor noted - TSH with AM labs to assess current thyroid function. - Thought to be due to Cialis. Possible EP study and ablation at [place]. (3) Pulmonary hypertension: Suspected to be due to connective tissue disorder (possible limited scleroderma). Continue her usual tadaladil and macitentan (pt to bring this in). Continue trial medication Ralinepag (unknown if taking placebo or real medication). 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 (5) Hypothyroidism: TSH with AM labs Continue levothyroxine 100mcg PO daily (6) DVT prophylaxis: Early mobility. Likley short stay therefore chemical prophylaxis not warranted given low risk. She also had CKD Stage 3 and hypertension which were managed appropriately. Total Time Total Time Spent Total Time Spent (In Minutes): 35 Discharge Plan Discharge Items Patient Disposition: Home - Self-Care Reason For Visit: ACUTE CHF,SVT Discharge Diagnosis: Supraventricular tachycardia Activity: Resume your previous activity Non-emergency contact: Primary Care Provider and Machine Feeder Floorperson Call non-emergency contact if: your symptoms worsen Follow-up/Referrals: Liyah Wolff MD [Primary Care Provider] - Diet: Heart Healthy Addtl Attending Provider Instructions: You were admitted to the hospital with a fast heart rate called a supraventricular tachycardia. This broke with the medication called adenosine. At home, you can try the different maneuvers we spoke about. If you can break it on your own, you do not need to come to the hospital. Just call your fuller brush man if you break it on your own to keep them up to date. Pending Studies at Discharge: No Stand-Alone Forms: My [facility] [place], Smoking Cessation Medications and DC Order Prescriptions: Continued (DME) [facility]izers [facility] See Dose Instructions .ROUTE .MEDSUPPLY Qty: 1 RF: 0 tadalafil (pulm. hypertension) [Adcirca] 20 mg tablet 40 mg PO HS RF: 0 levothyroxine 100 mcg Tablet 100 mcg PO QAM RF: 0 Bepreve 1.5 % Drops 1 drp OPB BID PRN (Reason: Allergy Symptoms) RF: 0 lutein 20 mg Tablet 20 mg PO QAM RF: 0 macitentan 10 mg Tablet 10 mg PO QDL RF: 0 furosemide [Lasix] 40 mg Tablet 40 mg PO QAM RF: 0 omeprazole 40 mg Capsule,Delayed Release(Dr/Ec) 40 mg PO BIDM RF: 0 amlodipine 10 mg tablet 10 mg PO QAM RF: 0 fluticasone propionate 50 mcg/actuation [place],Suspension 2 spray INTRANASAL HS RF: 0 Restasis 0.05 % Dropperette 1 drp OPB BID RF: 0 potassium chloride 10 mEq tablet,ER particles/crystals 10 meq PO TID RF: 0 cholecalciferol (vitamin D3) [Vitamin D3] 125 mcg (5,000 unit) Tablet 125 mcg PO QDL RF: 0 Zioptan (PF) 0.0015 % dropperette 1 drp OPB HS RF: 0 Ralinepag 700mcg 700 mcg PO QAM RF: 0 spironolactone 25 mg Tablet 25 mg PO DAILY RF: 0 Changed metoprolol succinate 100 mg tablet extended release 24 hr 50 mg PO BID Qty: 0 RF: 0 Discharge Orders: Discharge Order (Routine); Ordered 10/30/19 Ordered By: Scott Bowser Admission Data Admit Date/Time: 10/29/19 11:03 Attending Provider: Scott Bowser Admit Provider: Yevgeniy Ritter Primary Care Provider: Liyah Wolff Other Providers: Hugo Lee ; Scott Bowser Other Interventions: Discharge Summary Assessment (RN) Last Done: 10/30/19 12:23 DC Date/Time DO NOT enter until pt leaves facility: 10/30/19 13:18 Coding Level of Care Code D/C Day Management >30 mins Diagnoses Acute on chronic diastolic (congestive) heart failure I50.33 Paroxysmal SVT (supraventricular tachycardia) I47.1 Pulmonary hypertension I27.20 Connective tissue disorder M35.9 Hypothyroidism E03.9 DVT prophylaxis Z29.9
== END 2019-10-30 13:18 | disposition home or self-care (01) | DRG 308 ==
LOC: ED 08:15 → SUATTDRO 11:03 → 2E 11:03